=== PATIENT | female | born 1980 | race Caucasian/White ===

== ENCOUNTER 2020-02-09 13:28 | Emergency (ER) | payer BC, SELFPAY ==
[2020-02-09 13:37] VITALS: BP 131/64; PULSE 79; RESP 20; TEMP 37.2; O2SAT 98
--- NOTE | 2020-02-09 14:45 | ED.GENADULT ---
HPI - General Adult General Chief complaint: Skin/Abscess/Foreign Body Stated complaint: ABSCESS ON TAILBONE Time Seen by Provider: 02/09/20 13:47 Source: patient Mode of arrival: ambulatory Limitations: no limitations History of Present Illness HPI narrative: 39-year-old female patient presents to the emergency department with complaints of a wound to her tailbone area for the past 4 days. Denies any fevers, body aches or chills. Patient states that she has had abscess and wounds to this area before in the past but is been at least a year since she has had to have it drained. Patient states she has been taking ibuprofen as well as using hot showers to try and treat the wound. Patient denies any or breast-feeding at this time. Related Data Allergies Allergy/AdvReac Type Severity Reaction Status Date / Time No Known Allergies Allergy Mild Verified 02/09/20 13:43 Review of Systems Review of Systems: Narrative: CONSTITUTIONAL: Denies fever, chills, or sweats. EYES: Denies visual changes, redness, or discharge. ENT: Denies rhinorrhea, congestion, sore throat, or otalgia. CARDIOVASCULAR: Denies chest pain, palpitations, or edema. RESPIRATORY: Denies cough or dyspnea. GASTROINTESTINAL: Denies abdominal pain, nausea, vomiting, or diarrhea. GENITOURINARY: Denies dysuria or hematuria. SKIN: Denies rash or itching. Positive wound to tailbone x4 days MUSCULOSKELETAL: Denies back pain, joint pain, or myalgia. NEUROLOGIC: Denies headache, numbness, or weakness. PSYCHIATRIC: Denies anxiety or depression. PMFSH Social History Social History Smoking status: Never smoker Gender identity (if verbalized by the patient): Male Comments At the time of my signature I agree with nursing past medical history, surgical, social, and family history. There is no relevant family history pertinent to the presenting complaint. Exam Narrative: Exam Narrative: GENERAL: Well-appearing, well-nourished, and in no acute distress. HEAD: Normocephalic, atraumatic. EYES: PERRLA and EOMI. ENT: Nares clear, no rhinorrhea or epistaxis. Mucous membranes moist. NECK: Supple. No lymphadenopathy CHEST: Clear to auscultation. No respiratory distress. HEART: Regular rate and rhythm. No murmur heard. Normal peripheral pulses. ABDOMEN: Soft, nontender, nondistended, normal active bowel sounds. EXTREMITIES: Normal range of motion. No edema. SKIN: Warm, dry, no rash. Patient has an abscess noted to the right upper buttock/tailbone area. There is surrounding erythema, hardness to the skin as well as a center area that is raised and appears to be a blister. The reddened hardened area measures approximately 8 to 9 cm in length. NEURO: No focal deficits. Alert and oriented x3. Course Vital Signs Vital signs: Vital Signs Temperature 37.2 C 02/09/20 13:37 Pulse Rate 79 02/09/20 13:37 Respiratory Rate 20 02/09/20 13:37 Blood Pressure 131/64 02/09/20 13:37 Pulse Oximetry 98 02/09/20 13:37 Temperature 37.2 C 02/09/20 13:37 Pulse Rate 79 02/09/20 13:37 Respiratory Rate 20 02/09/20 13:37 Blood Pressure 131/64 02/09/20 13:37 Pulse Oximetry 98 02/09/20 13:37 Vital signs reviewed. The patient has been informed that they may have pre-hypertension or Hypertension based on a BP reading in the department. I recommend that the patient call the primary care provider listed on their discharge instructions or a physician of their choice this week to arrange follow up for further evaluation of possible pre-hypertension or Hypertension Procedures Abscess I/D back: Date of Incision: 02/09/20 Time of Incision: 15:01 Side (if applicable): right Sedation/analgesia: none Local Anesthetic: lidocaine 1% Amount of anesthesia used (mL): 4 Technique: incised with #11 blade Irrigation: Yes Packing used?: iodoform I&D Results: Pu
[2020-02-09 16:33] VITALS: BP 112/80; PULSE 80; RESP 20; TEMP 36.7; O2SAT 99
== END 2020-02-09 16:34 | disposition home or self-care (01) ==
PROVIDERS: Emergency Provider Nurse Practitioner Family
DX: L02.31 Cutaneous abscess of buttock (principal); R03.0 Elevated blood-pressure reading, without diagnosis of hypertension
CPT/HCPCS: 10061; 87070; 87147; 87205; 99283

== ENCOUNTER 2020-11-23 10:09 | Emergency (ER) | payer BC, SELFPAY ==
[2020-11-23 10:25] VITALS: BP 133/64; PULSE 90; RESP 16; TEMP 37.2; O2SAT 99
--- NOTE | 2020-11-23 10:31 | ED.SKABFB ---
HPI - Skin/Abscess/Foreign Bdy General Chief complaint: Skin/Abscess/Foreign Body Stated complaint: cyst on tailbone Time Seen by Provider: 11/23/20 10:24 Source: patient and RN notes reviewed Mode of arrival: ambulatory Limitations: no limitations History of Present Illness HPI narrative: 40-year-old female presents concern for a boil near her tail bone. Reports history of these cysts on her tailbone that she had to have lanced. Reports she noticed this area approximately 2 days ago. Reports she has been taking warm showers, ibuprofen. Denies any drainage, body aches, fatigue, general malaise. complaint: abscess/boil Related Data Allergies Allergy/AdvReac Type Severity Reaction Status Date / Time No Known Allergies Allergy Mild Verified 11/23/20 10:22 Review of Systems Review of Systems: Narrative: CONSTITUTIONAL: Denies malaise, chills, sweats, or fever. CARDIOVASCULAR: Denies chest pain, palpitations, or edema. RESPIRATORY: Denies cough or dyspnea. GASTROINTESTINAL: Denies abdominal pain, nausea, vomiting, diarrhea SKIN: Reports a boil near her tailbone MUSCULOSKELETAL: Denies back pain or myalgia. All systems reviewed & are unremarkable except as noted in HPI and below PMFSH Social History Social History Smoking status: Never smoker Gender identity (if verbalized by the patient): Male Comments At time of signature, agree with nursing past medical, surgical, social and family history. There is no relevant family history pertinent to the presenting complaint Exam Narrative: Exam Narrative: GENERAL: Well-appearing, well-nourished, and in no acute distress. HEAD: Normocephalic, atraumatic. EYES: PERRLA, conjunctivae clear ENT: Nares clear. Mucous membranes moist. NECK: Supple. CHEST: No respiratory distress. Speaks in full sentences. HEART: Regular rate and rhythm. SKIN: Warm, dry, no rash. [id number] area of induration, erythema warmth, with less than half centimeter area of minimal fluctuation. Surrounded by an additional 4 cm of erythema without induration. NEURO: Alert and oriented x3. PSYCH: Normal mood and affect Course Course Emergency Course: Discussed with patient pros and cons of attempting drainage of the abscess due to very small amount of fluctuation. Through shared decision-making, patient decided to use antibiotics and warm compresses without drainage at this time. She understands what to look for and reasons to return if the abscess needs drain. Patient is aware of diagnosis, understands and agrees to treatment plan. Anticipatory guidance given. Patient agrees to follow-up as directed and is aware of reasons to seek care at the emergency department. Portions of this record may have been created with voice recognition software Vital Signs Vital signs: Vital Signs Temperature 98.9 F 11/23/20 10:25 Pulse Rate 90 11/23/20 10:25 Respiratory Rate 16 11/23/20 10:25 Blood Pressure 133/64 11/23/20 10:25 Pulse Oximetry 99 11/23/20 10:25 Temperature 98.9 F 11/23/20 10:25 Pulse Rate 90 11/23/20 10:25 Respiratory Rate 16 11/23/20 10:25 Blood Pressure 133/64 11/23/20 10:25 Pulse Oximetry 99 11/23/20 10:25 Reviewed. MDM - Skin/Abscess/Foreign Bdy MDM Narrative Medical decision making narrative: Exam findings show no acute concerns or changes; patient is non-toxic appearing and is in no distress. Patient is appropriate for outpatient treatment and follow-up. Differential Diagnosis Differential diagnosis: Likely abscess of skin or subcutaneous tissue and cellulitis Critical Care Time Critical Care Time Critical Care Time: No Discharge Plan Discharge Clinical Impression: Abscess of skin or subcutaneous tissue Qualifiers: Site of cutaneous abscess: unspecified site Qualified Code(s): L02.91 - Cutaneous abscess, unspecified Patient Disposition: Home, Self-Care Condition: Stable Instructions: Anti
== END 2020-11-23 10:37 | disposition home or self-care (01) ==
PROVIDERS: Emergency Provider Nurse Practitioner
DX: L02.91 Cutaneous abscess, unspecified (principal)
CPT/HCPCS: 99213; G0463

== ENCOUNTER 2020-11-24 17:27 | Emergency (ER) | payer BC, SELFPAY ==
[2020-11-24 17:31] VITALS: BP 134/62; PULSE 99; RESP 18; TEMP 36.4; O2SAT 99
--- NOTE | 2020-11-24 18:11 | ED.GENADULT ---
HPI - General Adult General Chief complaint: Skin/Abscess/Foreign Body Stated complaint: abscess on tailbone Time Seen by Provider: 11/24/20 17:44 History of Present Illness HPI narrative: Patient is a 40-year-old female otherwise healthy who comes to the ED today complaining of an abscess on her tailbone. She says that this started 3 days ago has gotten progressively more edematous and painful since then. There is no drainage from this area. She denies any fevers or any systemic symptoms. Admits to previous history of similar symptoms before, she says that she has had this exact same thing happened on this exact same part of her body 6 times now in the past 3 years. Always requiring incision and drainage. She went to an urgent care yesterday and was prescribed some Augmentin but no incision and drainage was done. Denies any possibility of . Related Data Allergies Allergy/AdvReac Type Severity Reaction Status Date / Time No Known Allergies Allergy Mild Verified 11/24/20 17:35 Review of Systems Constitutional: Constitutional: Reports as per HPI, Denies fever(s), Denies night sweats and Denies weakness Cardiovascular: Cardiovascular: Denies chest pain, Denies edema, Denies leg edema, Denies dyspnea and Denies orthopnea Respiratory: Respiratory: Denies cough and Denies dyspnea Gastrointestinal: Gastrointestinal: Denies abdominal pain, Denies constipation, Denies diarrhea, Denies nausea and Denies vomiting Musculoskeletal: Musculoskeletal: Denies abnormal gait, Denies back pain, Denies numbness and Denies tingling Integumentary/Breasts: Comments: See HPI Neurologic: Denies Abnormal speech present, Denies abnormal gait, Denies numbness, Denies tingling and Denies weakness Psychiatric: Psychiatric: Denies homicidal ideation and Denies suicidal ideation ON LICENSE OF [facility] Social History Social History Smoking status: Never smoker Gender identity (if verbalized by the patient): Male Exam Const: General: cooperative, healthy appearing, comfortable, no acute distress, well developed, alert, awake and Physically active Orientation/consciousness: patient oriented x3 HENMT: Head: normal to inspection, normocephalic and atraumatic Ears: external ears normal General nose exam: Normal external nose present Eyes: Pupils: Equal, round and reactive pupils present EOM: EOMs intact bilaterally Neck: Neck: normal visual inspection Chest: Chest palpation & inspection: normal inspection of the chest and no tenderness Resp: Effort & Inspection: normal respiratory effort and able to speak in complete sentences Auscultation: clear to auscultation bilaterally Cardio: Rate: regular rate Rhythm: regular rhythm GI: Inspection: normal to inspection GI Palp: No abdominal tenderness : General: Yes no CVA tenderness Back/Spine/Pelvis: Back: no CVA tenderness Skin: General skin exam: normal color and no rashes or lesions noted Lesions: no lesions Other: At the superior right aspect of gluteal cleft there is a 3 cm in diameter indurated fluctuant area with some minimal surrounding erythema that is tender to palpate. Neuro: General: patient oriented x3, no focal motor deficits and CN's II-XI intact bilaterally Cranial nerves: Yes Equal, round and reactive pupils present Speech: No Abnormal speech present Extrem: General: normal to inspection and full ROM Psych: Appearance: grossly normal and well kempt Mental Status: mental status grossly normal Speech and movement: Normal speech and movement present Affect: normal affect Thought process: Normal thought process present Course Reevaluation(s) Reevaluation #1: Feeling better after incision and drainage. Patient tolerated procedure well. Told the packing should be removed in 2 to 3 days, preferably by healthcare professional. She can continue the Augmentin that she was prescribed yesterday as there is some surrounding erythema.
--- NOTE | 2020-11-24 18:24 | PC.NURSE ---
I&D kit set up at bedside.
--- NOTE | 2020-11-24 18:56 | PC.NURSE ---
PA at bedside for I&D.
[2020-11-24 19:34] VITALS: BP 131/84; PULSE 84; RESP 16; TEMP 36.4; O2SAT 99
== END 2020-11-24 19:35 | disposition home or self-care (01) ==
PROVIDERS: Emergency Provider Emergency Medicine
DX: L02.31 Cutaneous abscess of buttock (principal)
CPT/HCPCS: 10061; 99282

== ENCOUNTER 2020-12-26 17:30 | Emergency (ER) | payer BC, SELFPAY ==
--- NOTE | ~2020-12-26 | XR_ITS ---
EXAMINATION: XR wrist RT min 3V DATE: 12/26/2020 17:47 INDICATION: Right wrist pain. TECHNIQUE: Four views of right wrist were obtained. COMPARISON: None. FINDINGS: Bone alignment is normal. No fracture. Joint spaces are well maintained. IMPRESSION: 1. Normal right wrist. Reviewed, dictated and finalized at location A. IMPRESSION: 1. Normal right wrist.
[2020-12-26 17:31] VITALS: BP 134/55; PULSE 84; RESP 14; TEMP 36.3; O2SAT 99
--- NOTE | 2020-12-26 17:54 | ED.UPPEXIN ---
HPI - Extremity Injury (Upper) General Chief Complaint: Extremity Injury, Upper Stated Complaint: Wrist Injury Time Seen by Provider: 12/26/20 17:44 Source: patient Mode of arrival: ambulatory Limitations: no limitations History of Present Illness HPI narrative: This is a 40-year-old female that presents to the emergency department for right wrist injury sustained just prior to arrival. Reports she tripped and caught herself with her right wrist. Reports pain is worse with movement and relieved with rest. Denies other injuries, decreased range of motion or numbness. Related Data Allergies Allergy/AdvReac Type Severity Reaction Status Date / Time No Known Allergies Allergy Mild Verified 11/24/20 17:35 Review of Systems Review of Systems: Narrative: CONSTITUTIONAL: Denies fever MUSCULOSKELETAL: Reports joint pain, and myalgia. NEUROLOGIC: Denies numbness All systems reviewed & are unremarkable except as noted in HPI and below PMFSH Past Medical History Medical History (Updated 12/26/20 @ 18:21 by Monica Dunlap PA-C) No active medical problems Social History Social History Smoking status: Never smoker Gender identity (if verbalized by the patient): Male Exam Narrative: Exam Narrative: GENERAL: Well-appearing, well-nourished, and in no acute distress. HEAD: Normocephalic, atraumatic. EYES: EOMI. EXTREMITIES: Normal range of motion. No edema or obvious deformity. Normal radial pulses. Normal sensation SKIN: Warm, dry, no rash. NEURO: No focal deficits. Alert and oriented x3. PSYCH: Normal mood and affect Course Vital Signs Vital signs: Vital Signs Temperature 97.4 F L 12/26/20 17:31 Pulse Rate 84 12/26/20 17:31 Respiratory Rate 14 12/26/20 17:31 Blood Pressure 134/55 L 12/26/20 17:31 Pulse Oximetry 99 12/26/20 17:31 Temperature 97.4 F L 12/26/20 17:31 Pulse Rate 84 12/26/20 17:31 Respiratory Rate 14 12/26/20 17:31 Blood Pressure 134/55 L 12/26/20 17:31 Pulse Oximetry 99 12/26/20 17:31 MDM - Extremity Injury (Upper) Imaging Data Radiologist's impression: ITS Impressions Wrist X-Ray 12/26/20 17:48 IMPRESSION: 1. Normal right wrist. Critical Care Time Critical Care Time Critical Care Time: No Discharge Plan Discharge Clinical Impression: Sprain and strain of wrist Patient Disposition: Home, Self-Care Condition: Stable Instructions: Wrist Sprain (ED) Additional Instructions: Return to the emergency department if you experience fever, redness and swelling of your arm, numbness, or any other symptoms that are concerning to you Rest. Ice to the area. Tylenol or ibuprofen as needed for pain Follow-up with primary care doctor Prescriptions: No Action amoxicillin-pot clavulanate [Augmentin] 875-125 mg tablet 1 tablet PO Q12H 10 Days Qty: 20 RF: 0 Follow-up/Referrals: Florencio Hayden MD [Physician] - 3 Days PHYSICIAN,[employer] [Primary Care Provider] -
== END 2020-12-26 18:25 | disposition home or self-care (01) ==
PROVIDERS: Emergency Provider Emergency Medicine
DX: S63.501A Unspecified sprain of right wrist, initial encounter (principal); S66.911A Strain of unspecified muscle, fascia and tendon at wrist and hand level, right hand, initial encounter; W01.0XXA Fall on same level from slipping, tripping and stumbling without subsequent striking against object, initial encounter
CPT/HCPCS: 73110; 99283

== ENCOUNTER 2020-12-31 11:05 | Emergency (ER) | payer BC, SELFPAY ==
[2020-12-31 11:26] VITALS: BP 121/77; PULSE 70; RESP 20; TEMP 36.6; O2SAT 99
--- NOTE | 2020-12-31 13:36 | ED.DENTAL ---
HPI - Dental/Oral General Chief complaint: Dental/Oral Stated complaint: broken tooth Time Seen by Provider: 12/31/20 11:09 Source: patient Mode of arrival: ambulatory Limitations: no limitations History of Present Illness HPI Narrative: Patient is a 40 year old female who presents complaining of right lower dental pain. She reports broken tooth that keeps breaking . She reports pain started last pm and increasing today. She reports taking ibuprofen without relief. She reports unable to get into dentist until next week. She denies other complaints. MD Complaint: tooth pain Location: Tooth # (27) Related Data Allergies Allergy/AdvReac Type Severity Reaction Status Date / Time No Known Allergies Allergy Mild Verified 11/24/20 17:35 Review of Systems Review of Systems: Narrative: CONSTITUTIONAL: Denies fever, chills, or sweats. EYES: Denies visual changes, redness, or discharge. ENT: Denies rhinorrhea, congestion, sore throat, or otalgia. Right lower dental pain CARDIOVASCULAR: Denies chest pain, palpitations, or edema. RESPIRATORY: Denies cough or dyspnea. GASTROINTESTINAL: Denies abdominal pain, nausea, vomiting, or diarrhea. GENITOURINARY: Denies dysuria or hematuria. SKIN: Denies rash or itching. MUSCULOSKELETAL: Denies back pain, joint pain, or myalgia. NEUROLOGIC: Denies headache, numbness, dizziness, or weakness. PSYCHIATRIC: Denies anxiety or depression. PMFSH Past Medical History Medical History No active medical problems Social History Social History (Updated 12/31/20 @ 13:39 by LOY Augustin) Smoking status: Current every day smoker Tobacco type: cigarettes Alcohol intake: current Alcohol use details: occasional Substance use: never Gender identity (if verbalized by the patient): Female Comments At the time of signature, I have reviewed and agree with nursing past medical, surgical, social, and family history unless otherwise noted. Please see nursing chart for further information. There is no relevant family history pertinent to the presenting complaint. Exam Narrative: Exam Narrative: GENERAL: Well-appearing, well-nourished, and in no acute distress. HEAD: Normocephalic, atraumatic. EYES: EOMI. No redness or drainage. Conjunctiva are normal. ENT: Mucous membranes pink and moist. Multiple dental caries and dental fractures CHEST: No respiratory distress. Clear to auscultation. HEART: Regular rate and rhythm. EXTREMITIES: Normal range of motion. No edema. SKIN: Warm, dry, no rash. NEURO: No focal deficits. Alert and oriented x3. Gait steady. PSYCH: Normal affect. No signs of depression or anxiety. Course Vital Signs Vital signs: Vital Signs Temperature 36.6 C 12/31/20 11:26 Pulse Rate 70 12/31/20 11:26 Respiratory Rate 20 12/31/20 11:26 Blood Pressure 121/77 12/31/20 11:26 Pulse Oximetry 99 12/31/20 11:26 Temperature 36.6 C 12/31/20 11:26 Pulse Rate 70 12/31/20 11:26 Respiratory Rate 20 12/31/20 11:26 Blood Pressure 121/77 12/31/20 11:26 Pulse Oximetry 99 12/31/20 11:26 Reviewed MDM - Dental/Oral MDM Narrative Medical decision making narrative: Patient's been treated with antibiotics will most likely medical abscess/infection. Patient to follow-up with dentist next week as planned. Stable for discharge home with outpatient follow-up as discussed. Differential Diagnosis Differential diagnosis: Likely dental caries, toothache, dental abscess and fracture of tooth Medical Records Attestation: I reviewed the patient's medical records. Discharge Plan Discharge Clinical Impression: Dental caries, Dental abscess, Toothache Patient Disposition: Home, Self-Care Condition: Stable Instructions: Antibiotic Form, Dental Abscess (ED), Toothache (ED) Prescriptions: New clindamycin HCl 300 mg capsule 300 mg PO Q8H 7 Days Qty: 21 RF: 0 ibuprofen 800 mg tablet 8
== END 2020-12-31 13:53 | disposition home or self-care (01) ==
PROVIDERS: Emergency Provider Nurse Practitioner
DX: K04.7 Periapical abscess without sinus (principal); K02.9 Dental caries, unspecified; F17.210 Nicotine dependence, cigarettes, uncomplicated
CPT/HCPCS: 99283

== ENCOUNTER 2022-01-14 18:49 | Emergency (ER) | payer BC, SELFPAY ==
[2022-01-14 18:56] VITALS: BP 121/54; PULSE 94; RESP 21; TEMP 38.1; O2SAT 100
--- NOTE | 2022-01-14 19:01 | ED.FEMALEGU ---
HPI - Female Genitourinary General Chief complaint: Urogenital-Female Stated complaint: UTI Time Seen by Provider: 01/14/22 19:02 Source: patient and RN notes reviewed Mode of arrival: ambulatory Limitations: no limitations History of Present Illness HPI Narrative: 41-year-old female presented for complaint of burning with urination, suprapubic pressure, frequency and hesitancy for about 3 days. She denies flank pain, hematuria, nausea, vomiting, abdominal pain, fevers or chills. She states she is on her menstrual cycle. Related Data Allergies Allergy/AdvReac Type Severity Reaction Status Date / Time No Known Allergies Allergy Mild Verified 01/14/22 19:14 Review of Systems Review of Systems: CONSTITUTIONAL: Denies body aches, fever, chills, or sweats. CARDIOVASCULAR: Denies chest pain, palpitations, or edema. RESPIRATORY: Denies cough or dyspnea. GASTROINTESTINAL: Denies abdominal pain, nausea, vomiting, or diarrhea. GENITOURINARY: Reports dysuria, frequency, urgency, denies hematuria, flank pain SKIN: Denies rash, itching, or wounds. MUSCULOSKELETAL: Denies back pain or myalgia. [facility] Past Medical History Medical History No active medical problems Social History Social History Smoking status: Current every day smoker Tobacco type: cigarettes Alcohol intake: current Alcohol use details: occasional Substance use: never Gender identity (if verbalized by the patient): Female Comments At time of signature, I have reviewed and agree with nursing past medical, surgical, social and family history unless otherwise noted. Please see nursing chart for further information. There is no relevant family history pertinent to the presenting complaint Exam Narrative: GENERAL: Well-appearing ENT: Mucous membranes pink and moist. NECK: Normal AROM. Supple. CHEST: No respiratory distress. Clear to auscultation. HEART: Regular rate and rhythm. ABDOMEN: Soft, nontender, nondistended, normal active bowel sounds. No CVA tenderness MUSCULOSKELETAL: No bony tenderness. SKIN: Warm, dry, no rash. NEURO: No focal deficits. Alert and oriented x3. PSYCH: Normal affect. Course Course Emergency Course: Patient is aware of diagnosis, understands and agrees to treatment plan. Anticipatory guidance given. Patient agrees to follow-up as directed and is aware of reasons to seek care at the emergency department. Portions of this record may have been created with voice recognition software Level of Care: Express Care Visit Vital Signs Vital signs: Vital Signs Temperature 100.5 F H 01/14/22 18:56 Pulse Rate 94 01/14/22 18:56 Respiratory Rate 21 H 01/14/22 18:56 Blood Pressure 121/54 L 01/14/22 18:56 Pulse Oximetry 100 01/14/22 18:56 Oxygen Delivery Room Air 01/14/22 18:56 Temperature 100.5 F H 01/14/22 18:56 Pulse Rate 94 01/14/22 18:56 Respiratory Rate 21 H 01/14/22 18:56 Blood Pressure 121/54 L 01/14/22 18:56 Pulse Oximetry 100 01/14/22 18:56 Oxygen Delivery Room Air 01/14/22 18:56 Reviewed MDM - Female Genitourinary MDM Narrative Medical decision making narrative: Presented for UTI symptoms, on menses, ua reviewed with pt. She is advised to increase water, closely monitor symptoms and go to the ER for worsening concerns. v/u. Differential Diagnosis Differential diagnosis: Likely urinary tract infection and cystitis Discharge Plan Discharge Clinical Impression: UTI (urinary tract infection) Qualifiers: Urinary tract infection type: site unspecified Hematuria presence: with hematuria Qualified Code(s): N39.0 - Urinary tract infection, site not specified Patient Disposition: Home, Self-Care Condition: Stable Instructions: Antibiotic Form Additional Instructions: Your urine shows infection today. Take the antibiotic as prescribed until gone.
== END 2022-01-14 19:23 | disposition home or self-care (01) ==
PROVIDERS: Emergency Provider Nurse Practitioner Family
DX: N39.0 Urinary tract infection, site not specified (principal); F17.210 Nicotine dependence, cigarettes, uncomplicated
CPT/HCPCS: 81003; 87077; 87086; 87186; 99213; G0463

== ENCOUNTER 2022-09-13 13:06 | Emergency (ER) | payer BC, SELFPAY ==
[2022-09-13 13:10] VITALS: BP 147/80; PULSE 76; RESP 16; TEMP 37.1; O2SAT 100
--- NOTE | 2022-09-13 13:21 | ED.BACK ---
HPI - Back Pain/Injury General Chief Complaint: Back Pain/Injury Stated Complaint: lower back pain Time Seen by Provider: 09/13/22 13:09 History of Present Illness HPI Narrative: 22-year-old female presents emergency room for gradual onset of lower back pain for 1 week. Patient states that she works at [employer], has been lifting heavy objects while at work. Has been taking Tylenol and ibuprofen with minimal relief of her symptoms. States couple days ago her low back pain began to radiate into her left leg. Denies saddle anesthesia, paresthesias or numbness in her lower extremities. No changes to her bowel or bladder habits. Related Data Allergies Allergy/AdvReac Type Severity Reaction Status Date / Time No Known Allergies Allergy Mild Verified 01/14/22 19:14 Review of Systems Review of Systems: CONSTITUTIONAL: Denies fever, chills, or sweats. EYES: Denies visual changes, redness, or discharge. ENT: Denies rhinorrhea, congestion, sore throat, or otalgia. CARDIOVASCULAR: Denies chest pain, palpitations, or edema. RESPIRATORY: Denies cough or dyspnea. GASTROINTESTINAL: Denies abdominal pain, nausea, vomiting, or diarrhea. GENITOURINARY: Denies dysuria or hematuria. SKIN: Denies rash or itching. MUSCULOSKELETAL: Reports low back pain NEUROLOGIC: Denies headache, numbness, dizziness, or weakness. PSYCHIATRIC: Denies anxiety or depression. PMFSH Past Medical History Medical History No active medical problems Social History Social History Smoking status: Current every day smoker Tobacco type: cigarettes Alcohol intake: current Alcohol use details: occasional Substance use: never Gender identity (if verbalized by the patient): Female Exam Narrative: GENERAL: Well-appearing, well-nourished, no physical limitations, and in no acute distress. HEAD: Normocephalic, atraumatic. EYES: Conjunctivae normal, PERRLA and EOMI. CHEST: Clear to auscultation. No respiratory distress. No wheezes rales or rhonchi. HEART: Regular rate and rhythm. No murmur heard. Normal peripheral pulses. BACK: No midline lumbar tenderness, step-offs, bony abnormality; FROM. Tenderness over the left paralumbar spinal muscles. -SLE LLE EXTREMITIES: Normal range of motion. No edema. No clubbing or cyanosis SKIN: Warm, dry, no rash. No noted wounds NEURO: No focal deficits. Alert and oriented x3. MAEW. CN's II-XI intact bilaterally, normal gait PSYCH: Cooperative. Normal mood and affect. Course Vital Signs Vital signs: Vital Signs Temperature 37.1 C 09/13/22 13:10 Pulse Rate 76 09/13/22 13:10 Respiratory Rate 16 09/13/22 13:10 Blood Pressure 147/80 H 09/13/22 13:10 Pulse Oximetry 100 09/13/22 13:10 Oxygen Delivery Room Air 09/13/22 13:10 Temperature 37.1 C 09/13/22 13:10 Pulse Rate 76 09/13/22 13:10 Respiratory Rate 16 09/13/22 13:10 Blood Pressure 147/80 H 09/13/22 13:10 Pulse Oximetry 100 09/13/22 13:10 Oxygen Delivery Room Air 09/13/22 13:10 Discharge Plan Discharge Clinical Impression: Lumbago Patient Disposition: Home, Self-Care Condition: Stable Instructions: Antibiotic Form, Acute Low Back Pain (ED) Prescriptions: New methocarbamol 500 mg tablet 500 mg PO TID Qty: 21 0RF No Action ciprofloxacin HCl [Cipro] 500 mg tablet 500 mg PO Q12H 7 Days Qty: 14 0RF phenazopyridine [Pyridium] 200 mg tablet 200 mg PO TID 2 Days Qty: 6 0RF amoxicillin-pot clavulanate 875-125 mg tablet 1 tablet PO Q12H Qty: 14 0RF Follow-up/Referrals: PHYSICIAN,HIGH RIGGER [Primary Care Provider] - Stand Alone Forms: Work/School Release IP Time of Disposition: 13:24
== END 2022-09-13 13:37 | disposition home or self-care (01) ==
PROVIDERS: Emergency Provider Nurse Practitioner Family
DX: M54.50 Low back pain, unspecified (principal); F17.210 Nicotine dependence, cigarettes, uncomplicated
CPT/HCPCS: 96372; 99283; J1100

== ENCOUNTER 2022-12-14 17:19 | Emergency (ER) | payer BC, SELFPAY ==
[2022-12-14 17:35] VITALS: BP 130/59; PULSE 74; RESP 16; TEMP 37.3; O2SAT 99
--- NOTE | 2022-12-14 17:56 | ED.FEMALEGU ---
HPI - Female Genitourinary General Chief complaint: Urogenital-Female Stated complaint: abd pain/uti Time Seen by Provider: 12/14/22 17:55 Source: patient and RN notes reviewed Mode of arrival: ambulatory Limitations: no limitations History of Present Illness HPI Narrative: 42-year-old female presents with concern for lower abdominal discomfort, low back pain, urinary tract infection. She reports abdominal pressure and fullness after she urinates. Reports she feels like she needs to urinate after she has just urinated. She reports history of urinary tract infections. She denies fever, aches, chills, sweats, nausea, vomiting. She has not taken any medications for her symptoms MD elicited complaint: UTI Related Data Allergies Allergy/AdvReac Type Severity Reaction Status Date / Time No Known Allergies Allergy Mild Verified 12/14/22 17:37 Review of Systems Review of Systems: CONSTITUTIONAL: Denies malaise, chills, sweats, or fever. CARDIOVASCULAR: Denies chest pain, palpitations, or edema. RESPIRATORY: Denies cough or dyspnea. GASTROINTESTINAL: Denies abdominal pain, nausea, vomiting, diarrhea GENITOURINARY: Reports urgency, suprapubic pressure. Denies flank pain or hematuria. SKIN: Denies rash or itching. MUSCULOSKELETAL: Denies back pain or myalgia. All systems reviewed & are unremarkable except as noted in HPI and below PMFSH Past Medical History Medical History No active medical problems Social History Social History Smoking status: Current every day smoker Tobacco type: cigarettes Alcohol intake: current Alcohol use details: occasional Substance use: never Gender identity (if verbalized by the patient): Female Comments At time of signature, agree with nursing past medical, surgical, social and family history. There is no relevant family history pertinent to the presenting complaint Exam Narrative: GENERAL: Well-appearing, well-nourished, and in no acute distress. HEAD: Normocephalic. EYES: PERRLA, conjunctivae clear. NECK: Supple. No lymphadenopathy CHEST: Clear to auscultation. No respiratory distress. HEART: Regular rate and rhythm. ABDOMEN: Soft, nontender upon palpation, nondistended, normal active bowel sounds, no palpable or pulsatile masses, no guarding. No CVA tenderness SKIN: Warm, dry, no rash. NEURO: Alert and oriented x3. PSYCH: Normal mood and affect Course Course Emergency Course: Patient is aware of diagnosis, understands and agrees to treatment plan. Anticipatory guidance given. Patient agrees to follow-up as directed and is aware of reasons to seek care at the emergency department. Portions of this record may have been created with voice recognition software Level of Care: Express Care Visit Vital Signs Vital signs: Vital Signs Temperature 99.1 F 12/14/22 17:35 Pulse Rate 74 12/14/22 17:35 Respiratory Rate 16 12/14/22 17:35 Blood Pressure 130/59 L 12/14/22 17:35 Pulse Oximetry 99 12/14/22 17:35 Oxygen Delivery Room Air 12/14/22 17:35 Temperature 99.1 F 12/14/22 17:35 Pulse Rate 74 12/14/22 17:35 Respiratory Rate 16 12/14/22 17:35 Blood Pressure 130/59 L 12/14/22 17:35 Pulse Oximetry 99 12/14/22 17:35 Oxygen Delivery Room Air 12/14/22 17:35 Reviewed. MDM - Female Genitourinary MDM Narrative Medical decision making narrative: Exam findings and UA show no acute concerns or changes; patient is non-toxic appearing and is in no distress. Patient is appropriate for outpatient treatment and follow-up. Differential Diagnosis Differential diagnosis: Likely urinary tract infection and cystitis Lab Data Labs: Urine Glucose Negative Reference Range: Negative Urine Bilirubin Negative
== END 2022-12-14 18:08 | disposition home or self-care (01) ==
PROVIDERS: Emergency Provider Nurse Practitioner
DX: R39.15 Urgency of urination (principal); R10.30 Lower abdominal pain, unspecified; F17.210 Nicotine dependence, cigarettes, uncomplicated
CPT/HCPCS: 81003; 87086; 99213; G0463

== ENCOUNTER 2023-03-28 01:44 | Emergency (ER) | payer BC, SELFPAY ==
[2023-03-28] VITALS (20 sets, daily range): BP systolic 100–133; BP diastolic 53–66; PULSE 53–85; RESP 11–18; TEMP 36.7; O2SAT 90–98
--- NOTE | ~2023-03-28 | CT_ITS ---
CT of the Abdomen and Pelvis: Indication: Abdominal pain Technique: 2.5 mm axial scans were obtained through the abdomen and pelvis following intravenous adm inistration of 100 cc of Omnipaque 350. Dose reduction technique was used on this scan by utilizing a utomated exposure control and iterative reconstruction technique. The dose-length product (DLP) was 7 35.40 mGy-cm. Findings: Scans through the lung bases demonstrate minimal bibasilar atelectatic change. The liver, spleen, pancreas, gallbladder, adrenals and kidneys are within normal limits. No evidence of aortic aneurysm. No lymphadenopathy. No bowel obstruction or bowel wall thickening. There is no evidence to suggest acute appendicitis. Images through the pelvis were performed. Urinary bladder unremarkable. There is a complex/multisepta noah cystic mass in the left ovary measuring up to 5.5 x 4.1 cm in diameter. No beto ascites. Impression: 5.5 x 4.1 cm complex/multiseptated left ovarian cystic mass. Diagnostic considerations include tubo-o varian abscess, cystic neoplasm, and other cystic ovarian lesions. Pelvic ultrasound should be consid ered for further evaluation. Reviewed, dictated and finalized at [facility]. Impression: 5.5 x 4.1 cm complex/multiseptated left ovarian cystic mass. Diagnostic conside rations include tubo-ovarian abscess, cystic neoplasm, and other cystic ovarian lesions. Pelvic ultrasound should be considered for further evaluation.
--- NOTE | ~2023-03-28 | US_ITS ---
EXAMINATION: US transvaginal DATE: 03/28/2023 08:06 INDICATION: Pelvic pain. TECHNIQUE: Multiple transvaginal sonographic images of the pelvis were obtained. COMPARISON: CT abdomen and pelvis 03/28/2023 FINDINGS: The uterus measures 8.2 x 5.6 x 4.0 cm. There is no free fluid in the pelvis. The endometrial complex measures 12 mm in thickness. The right ovary measures 2.8 x 1.8 x 1.9 cm. The left ovary measures 5. 8 x 1.8 x 2.7 cm. There is a 2.5 cm hemorrhagic cyst in left ovary. There is normal vascular flow in the ovaries. IMPRESSION: 1. 2.5 cm hemorrhagic cyst in left ovary. Reviewed, dictated and finalized at location A.
[2023-03-28 02:29] LABS: Basophils Absolute Auto 0.1 K/mm3 (0.0-0.1); Basophils Percent Auto 0.4 % (0.2-1.2); Eosinophils Percent Auto 0.2 % (0-4.4); Hematocrit 39.2 % (37.0-47.0); Hemoglobin 13.2 g/dL (12.0-15.0); Immature Granulocyte Absolute 0.08 K/mm3 (0.00-0.031); Immature Granulocyte Percent A 0.4 % (0-0.5); Lymphocytes Absolute Auto 2.11 K/mm3 (0.9-3.2); Lymphocytes Percent Auto 11.3 % (18.3-44.2); Mean Corpuscular HGB Conc 33.7 g/dl (32-36); Mean Corpuscular Hemoglobin 30.7 pg (26-34); Mean Corpuscular Volume 91.2 fl (80-100); Mean Platelet Volume 10.7 fl (7.4-10.4); Monocytes Absolute Auto 1.4 K/mm3 (0.1-0.6); Monocytes Percent Auto 7.4 % (2.6-8.5); Neutrophils Percent Auto 80.3 % (45.5-73.1); Platelet Count Result 285 k/mm3 (150-375); Red Cell Distribution Width 12.9 % (11.5-14.5); White Blood Count 18.7 K/mm3 (4.5-10.0)
[2023-03-28 02:39] LABS: Alanine Aminotransferase 12 U/L (6-35); Albumin Level 4.4 g/dL (3.5-5.1); Alkaline Phosphatase 95 U/L (38-126); Anion Gap 8 mmol/L (8-16); Aspartate Amino Transferase 20 U/L (14-36); Bilirubin,Total 0.6 mg/dL (0.2-1.3); Blood Urea Nitrogen 10 mg/dL (7-17); Carbon Dioxide 22 mmol/L (22-30); Chloride 106 mmol/L (98-107); Estimated CRCL calculation 84 ml/min; Estimated Glomerular Filt Rate > 60; Glucose 117 mg/dL (65-110); Lipase 92 U/L (23-300); Sodium 136 mmol/L (137-145)
[2023-03-28 03:07] LABS: Appearance Urine Clear (Clear); Bilirubin Urine Negative (Negative); Blood Urine Negative (Negative); Color Urine Yellow (Yellow); Glucose Urine UA Negative (Negative); Ketones Urine Negative (Negative); Leukocyte Esterase Ur Negative LEU/UL (Negative); Nitrate Urine Negative (Negative); Protein Urine Negative (Negative); Specific Grav Ur 1.005 (1.001-1.035); Urobilinogen Urine 0.2 mg/dL (<2.0)
[2023-03-28 03:17] LABS: Add Urine Microscopic? NO
[2023-03-28] MEDS: MORPHINE SULFATE (*CRX) 4 MG/ML INJ IV PUSH (04:06)
[2023-03-28] MEDS: ONDANSETRON INJ 4 MG/2 ML VIAL IV PUSH (04:06)
[2023-03-28] MEDS: LACTATED RINGERS 1,000 ML 999 ML IV CONT (05:48)
--- NOTE | 2023-03-28 06:12 | ED.ABDPAIN ---
HPI - Abdominal Pain General Chief Complaint: Abdominal Pain Stated Complaint: abd pain Time Seen by Provider: 03/28/23 01:51 History of Present Illness HPI narrative: 42-year-old female presenting with lower abdominal pain, she states that she has had problems with her ovary in the past, reports that the pain started earlier in the night with nausea due to the severity of the pain. No vaginal discharge. Related Data Allergies Allergy/AdvReac Type Severity Reaction Status Date / Time No Known Allergies Allergy Mild Verified 12/14/22 17:37 Review of Systems Review of Systems: CONST: No fever. HEENT: No sore throat C/V: No chest pain RESP: No cough GI: Reports abdominal pain, nausea : No dysuria. M/S: No joint pain. SKIN: No rash. NEURO: [No headache or focal numbness or weakness] PSYCH: [No depression] [facility] Past Medical History Medical History No active medical problems Social History Social History Smoking status: Current every day smoker Tobacco type: cigarettes Alcohol intake: current Alcohol use details: occasional Substance use: never Gender identity (if verbalized by the patient): Female Exam Narrative: EXAMINATION OF ORGAN SYSTEMS/BODY AREAS: Constitutional: Vital signs per nursing GENERAL: Appears slightly uncomfortable and HEAD: Normal with no signs of head trauma. EYES: EOMI, conjunctiva normal ENT: Hearing grossly intact LUNGS: Nonlabored breathing. HEART: [Regular rate and rhythm] ABD: [Soft], mildly tender to palpation left lower quadrant : Vaginal discharge with some tenderness to left adnexa EXT: Normal range of motion SKIN: [No rashes or lesions.] NEURO: [Alert and oriented x 3. No gross focal sensory or strength deficits.] PSYCH: Normal affect Course Vital Signs Vital signs: Vital Signs Temperature 98.1 F 03/28/23 01:45 Pulse Rate 85 03/28/23 01:45 Respiratory Rate 16 03/28/23 01:45 Blood Pressure 133/66 03/28/23 01:45 Pulse Oximetry 98 03/28/23 01:45 Oxygen Delivery Room Air 03/28/23 01:45 Temperature 98.1 F 03/28/23 01:45 Pulse Rate 54 L 03/28/23 07:01 Respiratory Rate 14 03/28/23 07:01 Blood Pressure 101/56 L 03/28/23 07:01 Pulse Oximetry 95 03/28/23 07:01 Oxygen Delivery Room Air 03/28/23 01:45 MDM - Abdominal Pain MDM Narrative Medical decision making narrative: 42-year-old female presenting with pelvic pain, on exam she does have some mild tenderness to palpation left lower quadrant/adnexal tenderness with vaginal discharge, she has never been tested for STDs in the past but she is monogamous with her partner for the last 5 years and has not had any intercourse with anyone else's during this time and she is does not feel there is any concern of her partner cheating on her. Labs notable for white count of 18.7, CT therefore obtained which shows a possible cyst versus hydrosalpinx or tubo-ovarian abscess. Ultrasound therefore is ordered. Discussed with patient who would prefer to have all STD antibiotics ordered so I have started this to treat possible tubo-ovarian abscess. Patient being signed out to oncoming ER physician pending ultrasound. Lab Data 03/28/23 02:24 03/28/23 02:24 Labs: Lab Results 03/28/23 03/28/23 03/28/23 Range/Units 02:24 03:01 06:44 WBC 18.7 H (4.5-10.0) K/mm3 RBC 4.30 (4.2-5.4) M/mm3 Hgb 13.2 (12.0-15.0) g/dL Hct 39.2 (37.0-47.0) % MCV 91.2 (80-100) fl MCH 30.7 (26-34) pg MCHC 33.7 (32-36) g/dl RDW 12.9 (11.5-14.5) % Plt Count 285 (150-375) k/mm3 MPV 10.7 H (7.4-10.4) fl Immature Gran % (Auto) 0.4 (0-0.5) % Neut % (Auto) 80.3 H (45.5-73.1) % Lymph % (Auto) 11.3 L (18.3-44.2) % [place] % (Auto) 7.4 (2.6-8.5) % Eos % (Auto) 0.2 (0-4.4) % Baso % (Auto) 0.4
[2023-03-28] MEDS: DOXYCYCLINE HYCLATE 100 MG TABLET PO (07:04)
[2023-03-28] MEDS: metroNIDAZOLE 250 MG TABLET 500 MG PO (07:04)
== END 2023-03-28 08:55 | disposition home or self-care (01) ==
PROVIDERS: Emergency Medicine; Emergency Provider Emergency Medicine
DX: N83.202 Unspecified ovarian cyst, left side (principal); Z20.2 Contact with and (suspected) exposure to infections with a predominantly sexual mode of transmission; F17.210 Nicotine dependence, cigarettes, uncomplicated
CPT/HCPCS: 36415; 74177; 76830; 80053; 81003; 81025; 83690; 85025; 87070; 87491; 87591; 87808; 96361; 96365; 96375; 99284; A9270; J0696; J2270; J2405; J7120; Q9967

== ENCOUNTER 2024-03-07 10:19 | Emergency (ER) | payer BC, SELFPAY ==
[2024-03-07 10:27] VITALS: BP 130/69; PULSE 61; RESP 16; TEMP 36.7; O2SAT 100
--- NOTE | 2024-03-07 10:33 | ED.GENADULT ---
HPI - General Adult General Chief complaint: Skin/Abscess/Foreign Body Stated complaint: Bump On Butt Source: patient Mode of arrival: ambulatory Limitations: no limitations History of Present Illness HPI narrative: Pt presents for evaluation of a painful area of swelling to her coccyx for the past few days. She has had similar symptoms in the past and has required I+D. No fever, chills, nausea, vomiting. She rates her pain at rest as 6/10 severity but rates a 10/10 in severity with palpation the affected area. No discharge. She is not diabetic. She has tolerated both tramadol and [place] in the past. Related Data Allergies Allergy/AdvReac Type Severity Reaction Status Date / Time No Known Allergies Allergy Mild Verified 03/07/24 10:32 Review of Systems Review of Systems: CONSTITUTIONAL: Denies fever, chills, or sweats. EYES: Denies visual changes, redness, or discharge. ENT: Denies rhinorrhea, congestion, sore throat, or otalgia. CARDIOVASCULAR: Denies chest pain, palpitations, or edema. RESPIRATORY: Denies cough or dyspnea. GASTROINTESTINAL: Denies abdominal pain, nausea, vomiting, or diarrhea. GENITOURINARY: Denies dysuria or hematuria. SKIN: Reports painful swollen lesion to the coccyx MUSCULOSKELETAL: Denies back pain, joint pain, or myalgia. NEUROLOGIC: Denies headache, numbness, dizziness, or weakness. PSYCHIATRIC: Denies anxiety or depression. PMFSH Past Medical History Medical History (Updated 03/07/24 @ 11:23 by CHELSIE LegerP, ) No active medical problems Surgical History Surgical History No pertinent past surgical history Family History Family History (Updated 03/07/24 @ 11:23 by LOY Leger, ) Mother Family history non-contributory Social History Social History Smoking status: Current every day smoker Tobacco type: cigarettes Alcohol intake: current Alcohol use details: occasional Substance use: never Gender identity (if verbalized by the patient): Female Exam Narrative: GENERAL: Well-appearing, well-nourished, and in no acute distress. HEAD: Normocephalic, atraumatic. EYES: PERRLA and EOMI. ENT: Nares clear, no rhinorrhea or epistaxis. Mucous membranes moist. Oropharynx without tonsillar hypertrophy exudate or other lesions. Bilateral TMs pearly delarosa nonbulging NECK: Supple. No adenopathy or masses. No carotid bruits or JVD CHEST: Clear to auscultation. No respiratory distress. No wheezes rales or rhonchi HEART: Regular rate and rhythm. No murmur heard. Normal peripheral pulses. ABDOMEN: Soft, nontender, nondistended, normal active bowel sounds. EXTREMITIES: Normal range of motion. No edema. SKIN: approximately 2.5 cm slightly raised lesion to the coccyx which is fluctuant and erythematous. there is a linear scar in the affected area NEURO: No focal deficits. Alert and oriented x3. PSYCH: Normal mood and affect. Course Course Emergency Course: This is a 43-year-old female who presented for evaluation of infected pilonidal cyst. I suspected she had an abscess in the area however with incision and drainage I did not appreciate a large amount of purulent discharge. Wound cultures obtained. Will discharge with Keflex, Bactrim and tramadol. Follow-up with primary provider. Go to the ER for worsening symptoms. Patient in agreement with plan of care Level of Care: Express Care Visit Vital Signs Vital signs: Vital Signs Temperature 36.7 C 03/07/24 10:27 Pulse Rate 61 03/07/24 10:27 Respiratory Rate 16 03/07/24 10:27 Blood Pressure 130/69 03/07/24 10:27 Pulse Oximetry 100 03/07/24 10:27 Oxygen Delivery Room Air 03/07/24 10:27 Temperature 36.7 C 03/07/24 10:27 Pulse Rate 61 03/07/24 10:27 Respiratory Rate 16 03/07/24 10:27 Blood Pressure 130/69 03/07/24 10:27 Pulse Oximetry 100
[2024-03-07] MEDS: LIDOCAINE HCL 1% LOCAL INJ 2 ML AMPUL 10 ML INFILTRATE (10:34)
--- NOTE | 2024-03-07 11:45 | ED.GENADULT ---
HPI - General Adult General Chief complaint: Skin/Abscess/Foreign Body Stated complaint: Bump On Butt Source: patient Mode of arrival: ambulatory Limitations: no limitations History of Present Illness HPI narrative: see other chart Related Data Allergies Allergy/AdvReac Type Severity Reaction Status Date / Time No Known Allergies Allergy Mild Verified 04/22/24 10:27 [facility] Past Medical History Medical History Hypertriglyceridemia No active medical problems Surgical History Surgical History History of excision of pilonidal cyst 04/04/24 Extensive pilonidal cystectomy with excision of sinus tract Family History Family History Mother Yovany's disease Grandparent Diabetes mellitus Social History Social History Smoking packs per day: 1 Smoking cigarettes per day: 20.0 Smoking status: Former smoker Tobacco type: cigarettes Alcohol intake: current Alcohol use details: occasional Substance use: former Substance use type: former substance user, IV drugs and methamphetamine Last use: 9 MONTHS AGO Do You Feel Safe in your Home?: Yes Lack of Transportation: No Lack of Food: Never True Current Housing: I Have Housing Concerned About Future Housing: No Difficulty Paying Gas/Electric Bills: No Difficulty Paying for Meds: No Education: Associate Degree Difficulty w/ Childcare or Family Care: No Living arrangements: with family Occupation/Education: occupation Gender identity (if verbalized by the patient): Female Spiritual care concerns: No Course Course Level of Care: Express Care Visit Vital Signs Vital signs: Vital Signs Temperature 36.7 C 03/07/24 10:27 Pulse Rate 61 03/07/24 10:27 Respiratory Rate 16 03/07/24 10:27 Blood Pressure 130/69 03/07/24 10:27 Pulse Oximetry 100 03/07/24 10:27 Oxygen Delivery Room Air 03/07/24 10:27 Temperature 36.7 C 03/07/24 10:27 Pulse Rate 61 03/07/24 10:27 Respiratory Rate 16 03/07/24 10:27 Blood Pressure 130/69 03/07/24 10:27 Pulse Oximetry 100 03/07/24 10:27 Oxygen Delivery Room Air 03/07/24 10:27 Medical Decision Making Vital Signs Vital Signs: Vital Signs Temperature 36.7 C 03/07/24 10:27 Pulse Rate 61 03/07/24 10:27 Respiratory Rate 16 03/07/24 10:27 Blood Pressure 130/69 03/07/24 10:27 Pulse Oximetry 100 03/07/24 10:27 Oxygen Delivery Room Air 03/07/24 10:27 Temperature 36.7 C 03/07/24 10:27 Pulse Rate 61 03/07/24 10:27 Respiratory Rate 16 03/07/24 10:27 Blood Pressure 130/69 03/07/24 10:27 Pulse Oximetry 100 03/07/24 10:27 Oxygen Delivery Room Air 03/07/24 10:27 Discharge Plan Discharge Clinical Impression: Infected pilonidal cyst Patient Disposition: Home, Self-Care Condition: Stable Instructions: Antibiotic Form, Pilonidal Cyst (ED), Cellulitis (ED) Patient Language: Yakut Prescriptions: No Action oxycodone 5 mg tablet 5 mg PO Q6H PRN (Reason: pain) Qty: 20 0RF fenofibrate 54 mg tablet 54 mg PO DAILY Qty: 90 1RF Follow-up/Referrals: Lyric Valero MD [Primary Care Provider] - Time of Disposition: 11:21
== END 2024-03-07 11:25 | disposition home or self-care (01) ==
PROVIDERS: Emergency Provider Nurse Practitioner; PCP Family Medicine
DX: L05.91 Pilonidal cyst without abscess (principal)
CPT/HCPCS: 10080; 87070; 87075; 87205; 99213; G0463

== ENCOUNTER 2024-03-20 10:16 | Outpatient (CLI) | payer BC, SELFPAY ==
--- NOTE | ~2024-03-20 | US_ITS ---
EXAMINATION: US soft tissue head and neck DATE: 03/20/2024 10:35 INDICATION: Localized swelling, mass and lump, neck. TECHNIQUE: Multiple grayscale and Doppler ultrasound images of the head and neck were obtained. COMPARISON: None. FINDINGS: The right thyroid lobe measures 6.7 x 1.9 x 2.0 cm. The left thyroid lobe measures 6.1 x 2.1 x 2.2 c m. In the left thyroid lobe, there is a 1.8 cm solid, hypoechoic, wider than tall nodule with lobula r margins without echogenic foci (TI-RADS TR4). In the right thyroid lobe, there is a 1.5 cm solid, h ypoechoic, wider than tall nodule with ill-defined margin without echogenic foci (TR4). In the right thyroid lobe, there is a 7 mm mixed cystic and solid, hypoechoic, wider than tall nodule with ill-def ined margin without echogenic foci (TR3). There is no abnormal mass or lymphadenopathy in the patient 's area of concern in right neck. IMPRESSION: 1. Multinodular goiter. Ultrasound-guided fine needle aspiration of the 1.8 cm left thyroid nodule an d 1.5 cm right thyroid nodule is recommended. 2. No abnormal mass or lymphadenopathy in the patient's area of concern in right neck. Reviewed, dictated and finalized at location A. IMPRESSION: 1. Multinodular goiter. Ultrasound-guided fine needle aspiration of the 1.8 cm left thyroid nodule and 1.5 cm right thyroid nodule is recommended. 2. No abnormal mass or lymphadenopathy in the patient's area of concern in righ t neck.
== END 2024-03-20 10:17 ==
LOC: MICIMG 10:17
PROVIDERS: PCP Family Medicine; Visit Provider Student in an Organized Health Care Education/Training Program
DX: R22.1 Localized swelling, mass and lump, neck (principal); E04.2 Nontoxic multinodular goiter
CPT/HCPCS: 76536

== ENCOUNTER 2024-04-01 13:37 | Outpatient (CLI) | payer BC, SELFPAY ==
--- NOTE | 2024-04-01 13:30 | ECG_ITS ---
Test Date: 2024-04-01 13:56:46 Measurements Intervals [place] Rate: 57 P: 48 GA: 155 QRS: 77 QRSD: 84 T: 24 QT: 394 QTc: 384 Interpretive Statements SINUS BRADYCARDIA No previous ECG available for comparison Electronically Signed On 04-01-2024 14:42:31 CDT by Clark Reilly M.D.
== END 2024-04-01 13:38 | disposition home or self-care (01) ==
LOC: ANHSURGERY 13:40
PROVIDERS: PCP Family Medicine; Visit Provider Surgery
DX: E78.1 Pure hyperglyceridemia (principal)
CPT/HCPCS: 93005

== ENCOUNTER 2024-04-04 00:14 | Day surgery (SDC) | payer BC, SELFPAY ==
--- NOTE | 2024-03-27 14:52 | SUR.PREOP ---
Report to the Outpatient Waiting Room, entrance under the green pavilion located off [facility], at time 0630 on date 04/04/24. Planned Procedure Time: 0830. Time changes happen often and if your time is changed the preop area will call you the afternoon before. - You and your visitor will be asked to self-screen and do not enter if you have any COVID symptoms. - A mask is optional within the hospital at this time. Patients may have clear liquids (water, carbonated beverages, clear teas, apple juice) until 3 hours prior to surgery with a maximum of 20 ounces. - NO CLEAR LIQUIDS AFTER 0530 - No food from midnight until time of surgery - Infants may have breast milk until 4 hours before surgery, formula 6 hours prior to surgery. - Children will be allowed to drink immediately following surgery. If applicable, please bring a bottle or sippy cup to assist with drinking. Juice, water, soda, and popsicles are readily available. For infants on formula, please bring formula the day of surgery. Pacifiers are allowed. Take the following medications with a SIP of water the morning of surgery: N/A DO NOT STOP ANY OF YOUR OTHER PRESCRIPTION MEDICATIONS PRIOR TO SURGERY ?EXCEPT THE FOLLOWING Medications to discontinue per physician N/A Date to take last dose Please no make-up, nail armenian, hairspray, perfume, deodorant, or body powder the day of surgery. No jewelry (including any body piercings) or valuables the day of surgery, leave them at home. Please take a shower or bath the night before, or the morning of, surgery with an antibacterial soap. Wear comfortable, loose fitting clothing. Children are encouraged to wear pajamas. - Jewelry must be removed prior to entering the operating room. Rings and piercings that are not removed may be cut off. - The hospital will not accept responsibility for valuables. - Please leave all valuables, including medications, at home the day of surgery. If you are going home after surgery, a licensed rental car ferry driver must drive you home. - NO public transportation without another adult if you receive anesthesia. - We recommend that an adult stay with you for 24 hours following discharge. - We also recommend that you do not drive, make important decision, drink alcoholic beverages, or take any drugs that were not prescribed by your health care provider for at least 24 hours after your discharge time. For Pediatric surgeries, we recommend two adults accompany the child home. Follow any additional instructions given to you from your surgeon. If you or anyone in your household have experienced Covid symptoms in the past week, please notify your surgeon or the nurse liaison at the phone number below for possible testing. Telephone instructions given to MARRY MCCLENDON and asked if any additional questions and then verbalized understanding. Patient advised to call surgeon office or pre surgery nurse liaison [phone] if any additional questions.
[2024-03-27 15:05] VITALS: BMI 30.1
[2024-04-04] VITALS (8 sets, daily range): BP systolic 101–130; BP diastolic 60–88; PULSE 64–85; RESP 12–20; TEMP 36.1–37.1; O2SAT 98–100
[2024-04-04] MEDS: LACTATED RINGERS 1,000 ML 30 ML IV CONT (06:35)
[2024-04-04 06:57] LABS: BEDSIDEPREGUCG Negative
--- NOTE | 2024-04-04 07:16 | P.PNAN_ITS ---
Anes - Initial Pre Proc Eval Procedure: Operation Date: 04/04/24 07:30 Proposed Procedures p Pilonidal Cystectomy - Graeme Hines MD Date/Time: 04/04/24 07:16 Surgeon: Graeme Hines MD Pre Op Diagnosis: Pilonidal Cyst Patient Data Age: 43 Gender: F Height: 1.78 m Weight: 93.1 kg Last Vital Signs Temp 98.7 F 04/04/24 06:19 Pulse 69 04/04/24 06:19 Resp 20 04/04/24 06:19 BP 127/66 04/04/24 06:19 Pulse Ox 98 04/04/24 06:19 O2 Del Method Room Air 04/04/24 06:19 Allergies Allergy/AdvReac Type Severity Reaction Status Date / Time No Known Allergies Allergy Mild Verified 04/04/24 06:18 Home Medications Medication Instructions Recorded Confirmed Type fenofibrate 54 mg tablet 54 mg PO DAILY #90 tabs 03/31/24 04/04/24 Rx Laboratory Tests 04/04/24 06:19 POC Urine HCG, Qual Negative POC Ur Preg QC Yes Patient hx anesthesia problems: post op nausea/vomiting Family hx anesthesia problems: none Results Review: All pre-operative results and documents have been reviewed as part of the pre- operative evaluation. COUNT INCLUDES THE [facility] Past Medical History Medical History (Updated 03/24/24 @ 10:27 by Analisa Ramirez PA-C) Hypertriglyceridemia No active medical problems Surgical History Surgical History No pertinent past surgical history Family History Family History Mother Yovany's disease Grandparent Diabetes mellitus Social History Social History Smoking packs per day: 1 Smoking cigarettes per day: 20.0 Smoking status: Former smoker Tobacco type: cigarettes Alcohol intake: current Alcohol use details: occasional Substance use: former Substance use type: former substance user, IV drugs and methamphetamine Last use: 9 MONTHS AGO Do You Feel Safe in your Home?: Yes Lack of Transportation: No Lack of Food: Never True Current Housing: I Have Housing Living arrangements: with family Occupation/Education: occupation Gender identity (if verbalized by the patient): Female Spiritual care concerns: No Anes - Eval Final PreProcedure Day of Procedure 04/04/24 07:16 Patient weight: obese Heart: regular rate and rhythm Lungs: clear to auscultation Airway: Mallampati scale class II Neurological: alert and oriented Last oral intake: >/= 8 hours ASA classification: II Emergent: no Anesthetic plan: proceed Anesthesia type and monitoring: general ETT and standard monitoring Results Review: All pre-operative results and documents have been reviewed as part of the pre-operative evaluation. Informed Consent: The patient's anesthetic plan and its attendant risks and benefits were discussed with the patient/family/POA. Questions were solicited and answers provided to the satisfaction of the patient/family/POA.
--- NOTE | 2024-04-04 07:22 | WPDHPUPDATE1 ---
History and Physical Update Update Date/Time: 04/04/24 07:22 History and Physical has been reviewed, including an updated exam of the patient. There are NO changes in the patient's condition. Risks, benefits, and alternatives have been discussed and questions answered. Patient agrees to proceed with procedure.
[2024-04-04] MEDS: LIDO 1%/EPINEPHRINE 1:100,000 50 ML VIAL 30 ML INFILTRATE (07:32)
[2024-04-04] MEDS: ceFAZolin 2 GM/D5W 50 ML 2 GM/50 ML BAG IVPB (07:32)
[2024-04-04] MEDS: BUPivacaine HCL 0.5% PF 30 ML VIAL INFILTRATE (07:32)
[2024-04-04] MEDS: BACITRACIN OINTMENT 15 GM TUBE 1 APPLIC TOPICAL (08:57)
[2024-04-04] MEDS: KETOROLAC 15 MG/ML VIAL (*BKC) IV PUSH (09:04)
--- NOTE | 2024-04-04 09:28 | W.PM.PROC2 ---
Procedure Note - Detailed Date of Procedure 04/04/24 Pre-op Diagnosis Pilonidal Cyst with draining sinus tract. Post-op Diagnosis Same Procedure Performed Extensive pilonidal cystectomy with excision of sinus tract. Surgeon Graeme Hines MD Anesthesia General Indications Patient is a 43-year-old female who has had issues with the pilonidal cyst on a chronic basis for several years. She has had multiple episodes of infection with abscess formation and either spontaneously drained the abscess or had to have the abscess incised and drained and a emergency room. There is presently no infection and she presents now for excision of the pilonidal cyst and draining sinus tract. Findings Patient had a pilonidal cyst with 2 pits along the upper 1/3 of the upper midline gluteal cleft. This led to a fibrous draining tract which extended to the patient right side off of the midline about 1cm lateral to the midline in the upper portion of the gluteal cleft. No active abscess underneath the draining sinus tract was noted. Description of Procedure After informed consent was obtained patient brought to the operating room where she was placed supine position on the gurney then placed under general endotracheal anesthesia. She was then turned onto the prone bert-knife position on operating table taking care to make sure that all the pressure points were well padded. The buttocks were then taped apart to expose the upper midline gluteal cleft. The area was then prepped and draped usual sterile fashion. A time-out was then performed correctly identifying the patient as well as procedure to be performed and she was given perioperative IV antibiotics. I then made a elongated elliptical incision curving just to the right of the upper midline gluteal cleft to include the draining sinus tract opening at the skin. Dissection carried through the dermis skin with a scalpel electrocautery was used to dissect down through the subcutaneous tissues all the way down to the presacral fascia on both sides of the incision. I excised out chronic fibrotic tissue as well as the cyst underneath the it is in the upper midline gluteal cleft. This is all done with electrocautery and the tissue was passed off to the table and sent to pathology. I then irrigated out the incision sterile saline solution. Hemostasis was then achieved utilized electrocautery. I then close incision with multiple layers of 0 Vicryl suture in the deep subcutaneous tissues just above the presacral fascia. This is then followed by 2 layers of interrupted 2-0 Vicryl sutures in the midlevel subcutaneous tissues. A layer of interrupted 3-0 Vicryl sutures were placed in the deep dermal layer. The skin edges were then approximated utilizing interrupted 3-0 nylon sutures placed in a vertical mattress fashion. The incision closed well without any tension. It was then anesthetized using 1% lidocaine mixed with 0.5% Marcaine and injected around the incision postoperative pain relief. The incision was then cleaned and then antibiotic ointment and a sterile dressing was applied. The patient tolerated the procedure well no complications. All sponges, needles, and instrument counts were correct at the end procedure. EBL was _30__cc. The patient was awakened and taken to recovery in stable and satisfactory condition. Implants None Estimated Blood Loss 30 Drains No Packing No Pathology Yes (Pilonidal cyst and sinus tract to pathology) Complications No immediate complications Condition Stable Disposition PACU [facility] Billing Surgery - Charge Forward: Surgery Billing
== END 2024-04-04 11:15 | disposition home or self-care (01) ==
PROVIDERS: PCP Family Medicine; Visit Provider Surgery
PROC: (CPT 11771; principal; 2024-04-04 07:30)
DX: L05.91 Pilonidal cyst without abscess (principal); E78.1 Pure hyperglyceridemia; E66.9 Obesity, unspecified; Z68.29 Body mass index [BMI] 29.0-29.9, adult; Z87.891 Personal history of nicotine dependence
CPT/HCPCS: 11771; 88305; A9270; J0690; J1100; J1200; J1885; J2250; J2405; J2704; J3010; J7120

== ENCOUNTER 2024-07-10 15:34 | Outpatient (CLI) | payer BC, SELFPAY ==
--- NOTE | ~2024-07-10 | MM_ITS ---
EXAMINATION: MM screening jose BI w miles HISTORY: Screening mammogram TECHNIQUE: Craniocaudal and mediolateral oblique 3-D tomosynthesis images were obtained and synthetic 2-D images were generated. CAD analysis was submitted and interpreted. COMPARISON: No prior mammogram is available for comparison at this institution. BREAST PARENCHYMAL COMPOSITION:Dense: The breasts are extremely dense, which lowers the sensitivity o f mammography. FINDINGS: Possible mass or asymmetry at the lower right breast. Questionable mass or asymmetry at the outer left breast. No suspicious microcalcific microcalcifications. IMPRESSION: Bilateral breast asymmetries or possible masses, as detailed above. Spot compression views and possi elli ultrasound, are recommended for further evaluation. BI-RADS Category 0: Incomplete: Needs additional imaging evaluation. Reviewed, dictated and finalized at [facility]. ICAL PRODUCT SALES CONSULTANT IMPRESSION: Bilateral breast asymmetries or possible masses, as detailed above. Spot compr ession views and possibly ultrasound, are recommended for further evaluation. BI-RADS Category 0: Incomplete: Needs additional imaging evaluation.
== END 2024-07-10 15:35 | disposition home or self-care (01) ==
LOC: ANHIMG 15:35
PROVIDERS: PCP Family Medicine; Visit Provider Student in an Organized Health Care Education/Training Program
DX: Z12.31 Encounter for screening mammogram for malignant neoplasm of breast (principal); R92.8 Other abnormal and inconclusive findings on diagnostic imaging of breast
CPT/HCPCS: 77063; 77067

== ENCOUNTER 2024-08-08 12:35 | Outpatient (CLI) | payer BC, SELFPAY ==
--- NOTE | ~2024-08-08 | MMUS_ITS ---
EXAMINATION: MM diagnostic jose BI w miles, US breast BI complete HISTORY: Follow-up breast asymmetries TECHNIQUE: Additional 3-D tomosynthesis images of the breasts were performed and synthetic 2-D images were generated. CAD analysis was submitted and interpreted. High resolution bilateral complete breas t ultrasound was performed. COMPARISON: 07/10/2024 BREAST PARENCHYMAL COMPOSITION: Dense: The breasts are extremely dense, which lowers the sensitivity of mammography. FINDINGS: MAMMOGRAPHIC FINDINGS: No discrete mass, architectural distortion or suspicious calcifications are identified in either [address]. ULTRASOUND: Complete US of all 4 quadrants of the breast/s and retroareolar region was reviewed. Right breast: There are multiple cyst of the right breast. At 12:00, 2 cm from the nipple there is a solid hypoechoic mass with internal vascularity measuring 10 x 10 x 7 mm. At 6:00, 3 cm from the nipp le there is an oval hypoechoic mass measuring 7 x 6 x 4 mm with no significant posterior features or internal vascularity, likely benign. Left breast: There are cysts of the left breast, largest measuring 1.4 cm at 2:00, 5 cm from the nipp le. No suspicious masses in the left breast to suggest malignancy. IMPRESSION: 1. Solid hypoechoic vascular mass of the right breast at 12:00, 2 cm from the nipple measuring 10 mm. Ultrasound-guided right breast biopsy recommended. 2. Probable benign hypoechoic mass of the right breast at 6:00, 3 cm from the nipple. Six-month follo w-up right breast ultrasound recommended. BI-RADS category 4, suspicious findings. Reviewed, dictated and finalized at location [facility]. C THERAPY SPECIALIST IMPRESSION: 1. Solid hypoechoic vascular mass of the right breast at 12:00, 2 cm from the n ipple measuring 10 mm. Ultrasound-guided right breast biopsy recommended. 2. Probable benign hypoechoic mass of the right breast at 6:00, 3 cm from the n ipple. Six-month follow-up right breast ultrasound recommended. BI-RADS category 4, suspicious findings.
== END 2024-08-08 12:36 | disposition home or self-care (01) ==
LOC: ANHIMG 12:38
PROVIDERS: PCP Family Medicine; Visit Provider Student in an Organized Health Care Education/Training Program
DX: N63.15 Unspecified lump in the right breast, overlapping quadrants (principal)
CPT/HCPCS: 76641; 77062; 77066; G0279

== ENCOUNTER 2024-10-01 08:31 | Outpatient (CLI) | payer BC, SELFPAY ==
--- NOTE | ~2024-10-01 | MMUS_ITS ---
US_MAGSEEDRT_US, MM post biopsy diagnostic RT 10/01/2024 09:17 (accession [id number]), 10/01/2024 09:14 (accession [id number]) Indication: Magseed Placement. Recent discordant biopsy. Procedure: High-resolution Limited ultrasound of the right breast. Post biopsy mammogram for marker p lacement. Comparison: 08/08/2024 Findings: The area of interest in the right breast was cleaned using sterile technique. 1% lidocaine was used for anesthesia. Using sonographic guidance a needle was advanced into the mass of interest a t 12:00, 2 cm from the nipple. Magseed marker was deployed using sonographic guidance. Subsequent jose mogram demonstrates the magseed device in the upper outer quadrant of the right breast adjacent to th e previously deployed tissue marker from prior ultrasound-guided biopsy. Impression: 1: Successful magseed deployment using ultrasound guidance. Reviewed, dictated and finalized at location B. TREER Impression: 1: Successful magseed deployment using ultrasound guidance. Impression: 1: Successful magseed deployment using ultrasound guidance.
--- OUTSIDE RECORDS SUMMARY | 2024-10-01 08:59 | XMS_ITS | Clinical Summary ---
Author Organization [facility] [employer] Address [address] [place] [address] Care Team Providers Care Auxiliary Operator Name Role Phone Osmar Wang MD Primary Care Provider Source Comments [facility] [employer],non-owned Affiliates and Associated Physician Practices is amultiple site organization consisting of ambulatory clinics and hospital sitesin [place], [place], [place] and [place]. This disclosure is being madepursuant to the Care Everywhere program and may not contain all information available regarding this patient. Last updated 18.[facility] [employer] Allergies No known active allergies Medications * Be aware that medications may not be up to date on this document. Alwaysverify current medications with the patient. Medication Sig Dispensed Refills Start Date End Date Status hydrocodone-acetaminop hen (NORCO) 5-325 MG tablet Take 2 Tabs by mouth every 6 hours as needed for Pain 15 Tab 0 10/29/2015 Active Social History Tobacco Use Types Packs/Day Years Used Date Smoking Tobacco: Every Day Cigarettes Sex and Gender Information Value Date Recorded Sex Assigned at Not on file Gender Identity Not on file Sexual Orientation Not on file Last Filed Vital Signs Vital Sign Reading Time Taken Comments Blood Pressure 120/76 10/29/2015 6:04 PM MACHINE CHAIN MAKER Pulse 95 10/29/2015 6:04 PM MACHINE CHAIN MAKER Temperature 36.7 C (98 F) 10/29/2015 3:00 PM MACHINE CHAIN MAKER Respiratory Rate 16 10/29/2015 6:04 PM MACHINE CHAIN MAKER Oxygen Saturation 98% 10/29/2015 6:04 PM MACHINE CHAIN MAKER Inhaled Oxygen Concentration - - Weight 82.1 kg (181 lb) 10/29/2015 3:00 PM MACHINE CHAIN MAKER Height 175.3 cm (5' 9.02 ) 10/29/2015 3:00 PM CS T Body Mass Index 26.72 10/29/2015 3:00 PM MACHINE CHAIN MAKER Plan of Treatment Health Maintenance Due Date Last Done Comments LIPID TESTING 1981 MAMMOGRAM 1981 PAP SMEAR 1981 HIV SCREENING 1996 HEPATITIS C SCREENING 07/19/1999 DTAP/TDAP/TD VACCINES (1 - Tdap) 2000 HEPATITIS B VACCINE (1 of 3 - 19+ 3-dose series) 2000 PNEUMOCOCCAL VACCINE (1 of 2 - PCV) 2000 COVID-19 VACCINE (1 - 2023-2 5 season) 2024 INFLUENZA VACCINE (#1) 2024 DEPRESSION SCREENING 08/20/2024 ZOSTER VACCINE (1 of 2) 2031 HIB VACCINE Aged Out No longer eligi ble based on patient's age to complete this topic HPV VACCINE Aged Out No longer eligi ble based on patient's age to complete this topic MENINGOCOCCAL (Group B) VACCINE Aged Out No longer eligible based on patient's age to complete this topic MENINGOCOCCAL VACCINE Aged Out No nba kadeem eligible based on patient's age to complete this topic Care Teams Auxiliary Operator Relationship Specialty Start Date End Date Osmar Wang MD [facility] [place] [address] PCP - General Family Medicine 10/29/15
--- OUTSIDE RECORDS SUMMARY | 2024-10-01 09:00 | XMS_ITS | Referral Summary ---
Author Organization [facility] Address [address] [place] [address] Care Team Providers Care Machine Operator Picker Name Role Phone Osmar Wang MD Primary Care Provider [phone] Source Comments [facility] [employer],non-owned Affiliates and Associated Physician Practices is amultiple site organization consisting of ambulatory clinics and hospital sitesin [place], [place], [place] and [place]. This disclosure is being madepursuant to the Care Everywhere program and may not contain all information available regarding this patient. Last updated 18.[facility] [employer] Allergies No known active allergies Medications * [...] Comments Blood Pressure 120/76 10/29/2015 6:04 PM CROWN IRONER OPERATOR Pulse 95 10/29/2015 6:04 PM CROWN IRONER OPERATOR Temperature 36.7 C (98 F) 10/29/2015 3:00 PM CROWN IRONER OPERATOR Respiratory Rate 16 10/29/2015 6:04 PM CROWN IRONER OPERATOR Oxygen Saturation 98% 10/29/2015 6:04 PM CROWN IRONER OPERATOR Inhaled Oxygen Concentration - - Weight 82.1 kg (181 lb) 10/29/2015 3:00 PM CROWN IRONER OPERATOR Height 175.3 cm (5' 9.02 ) 10/29/2015 3:00 PM CS T Body Mass Index 26.72 10/29/2015 3:00 PM CROWN IRONER OPERATOR Plan of Treatment Not on file Care Teams Machine Operator Picker Relationship Specialty Start Date End Date Osmar Wang MD [address] [place] [address] PCP - General Family Medicine 10/29/15
--- OUTSIDE RECORDS SUMMARY | 2024-10-01 09:00 | XMS_ITS | Patient Health Summary ---
Author Organization [facility] Address [address] [place] [address] Care Team Providers Care Waybill Clerk Name Role Phone Osmar Wang MD Primary Care Provider [phone] Note from [facility],non-owned Affiliates and Associated Physician Practices is amultiple site organization consisting of ambulatory clinics and hospital sitesin [place] and [place]. This disclosure is being madepursuant to the Care Everywhere program and may not contain all information available regarding this patient. Last updated 18.[facility] Allergies No known active allergies Medications * Be aware that medications may not be up to date on this document. Alwaysverify current medications with the patient. * hydrocodone-acetaminophen (NORCO) 5-325 MG tablet(Started 10/29/2015) Take 2 Tabs by mouth every 6 hours as needed for Pain Social History Tobacco Use Types Packs/Day Years Used Date Smoking Tobacco: Every Day Cigarettes Sex and Gender Information Value Date Recorded Sex Assigned at Not on file Gender Identity Not on file Sexual Orientation Not on file Last Filed Vital Signs Vital Sign Reading Time Taken Comments Blood Pressure 120/76 10/29/2015 6:04 PM POOL TECHNICIAN Pulse 95 10/29/2015 6:04 PM POOL TECHNICIAN Temperature 36.7 C (98 F) 10/29/2015 3:00 PM POOL TECHNICIAN Respiratory Rate 16 10/29/2015 6:04 PM POOL TECHNICIAN Oxygen Saturation 98% 10/29/2015 6:04 PM POOL TECHNICIAN Inhaled Oxygen Concentration - - Weight 82.1 kg (181 lb) 10/29/2015 3:00 PM POOL TECHNICIAN Height 175.3 cm (5' 9.02 ) 10/29/2015 3:00 PM CS T Body Mass Index 26.72 10/29/2015 3:00 PM POOL TECHNICIAN Procedures * CULTURE WOUND+GRAM STAIN(Performed 10/29/2015) * ED INCISION AND DRAINAGE(Performed 10/29/2015) Performed for Pilonidal cyst with abscess Results * (ABNORMAL) CULTURE WOUND+GRAM STAIN (10/29/2015 6:06 PM POOL TECHNICIAN) Culture Growth from broth only Prevotella buccae(A) MARYAM 11/06/2015 2:30 PM CDT [facility] Culture Growth of normal skin satya MARYAM 11/06/2015 2:30 PM CDT [facility] Gram Stain Many White blood cells 11/06/2015 2:30 PM CDT [facility] Gram Stain Many Gram positive cocci 11/06/2015 2:30 PM CDT [facility] Gram Stain Many Gram negative bacilli 11/06/2015 2:30 PM CDT [facility] Gram Stain Many Gram positive bacilli 11/06/2015 2:30 PM T [facility] Microbiology ENTIRE COCCYX / Unknown 10/29/2015 6:06 PM POOL TECHNICIAN 10/29/2015 6:22 PM POOL TECHNICIAN [facility] - MICRO BIOLOGY ORDERABLES Performing Organization Address City/State/[facility] Co de Phone Number [facility] [address] * ED INCISION AND DRAINAGE (10/29/2015 6:03 PM POOL TECHNICIAN) Narrative Khloe Hoffmann APRN-CNP - 10/29/2015 6:03 PM POOL TECHNICIAN Khloe Hoffmann APRN-CNP 10/29/2015 6:03 PM Provider contact with the patient: 10/29/2015 17:04 Marivel Zimmerman [id number] [facility] History Chief Complaint Patient presents with Abscess HPI Pt is here today with abscess to coccyx area that started 4-5 days ago. It is getting worse. Rates pain as 9/10. She denies any fever or chills. No vomiting. She has history of abscesses and MRSA. She has had 5 previous abscesses in this same location. No past medical history on file. Past Surgical History Procedure Laterality Date Acl reconstruction right knee No family history on file. History Social History Marital Status: Single Spouse Name: N/A Number of Children: N/A Years of Education: N/A Occupational History Not on file. Social History Main Topics Smoking status: Current Every Day Smoker -- 0.50 packs/day Types: Cigarettes Smokeless tobacco: Not on file Alcohol Use: Not on file Drug Use: Not on file Sexual Activity: Not on file Other Topics Concern Not on file Social History Narrative No narrative on file Review of Systems Review of Systems Constitutional: Negative. Negative for fever, chills and malaise/fatigue. HENT: Negative. Eyes: Negative. Respiratory: Negative. Negative for cough, shortness of breath and wheezing. Cardiovascular: Negative. Negative for chest pain and palpitations. Gastrointestinal: Negative. Negative for nausea, vomiting and abdominal pain. Genitourinary: Negative. Musculoskeletal: Negative. Negative for myalgias, back pain, falls and neck pain. Skin: As per HPI Neurological: Negative. Negative for loss of consciousness and headaches. Endo/Heme/Allergies: Negative. Does not bruise/bleed easily. Physical Exam BP 128/74 mmHg Pulse 107 Temp(Src) 98 F Resp 18 Ht 1.753 m (5' 9.02 ) Wt 82.101 kg (181 lb) BMI 26.72 kg/m2 SpO2 99% Physical Exam Constitutional: She appears well-developed and well-nourished. HENT: Head: Normocephalic and atraumatic. Neck: Normal range of motion. Neck supple. Cardiovascular: Normal rate, regular rhythm and normal heart sounds. Pulmonary/Chest: Effort normal and breath sounds normal. No respiratory distress. She has no wheezes. She has no rales. Abdominal: Soft. Bowel sounds are normal. She exhibits no distension. There is no tenderness. Skin: There is erythema. Raised swollen tender area to the coccyx approx 7-8cm with center fluctuance. Nursing note and vitals reviewed. Medications Current Outpatient Prescriptions Medication Sig Dispense Refill sulfamethoxazole-trimethoprim (BACTRIM DS; SEPTRA DS) 800-160 MG tablet Take 1 Tab by mouth every 12 hours for 10 days 20 Tab 0 hydrocodone-acetaminophen (NORCO) 5-325 MG tablet Take 2 Tabs by mouth every 6 hours as needed for Pain 15 Tab 0 Procedures Incision/Drainage Date/Time: 10/29/2015 5:40 PM Performed by: KHLOE HOFFMANN Authorized by: KHLOE HOFFMANN Consent: Verbal consent obtained. Written consent obtained. Risks and benefits: risks, benefits and alternatives were discussed Consent given by: patient Patient understanding: patient states understanding of the procedure being performed Patient consent: the patient's understanding of the procedure matches consent given Procedure consent: procedure consent matches procedure scheduled Relevant documents: relevant documents present and verified Site marked: the operative site was marked Patient identity confirmed: verbally with patient and arm band Type: pilonidal cyst Location: coccyx. Anesthesia: local infiltration Local anesthetic: lidocaine 1% without epinephrine Anesthetic total: 5 ml Scalpel size: 11 Incision type: single straight Complexity: simple Drainage: purulent Drainage amount: copious Wound treatment: wound left open Patient tolerance: Patient tolerated the procedure well with no immediate complications ECG Interpretation ECG Interpretation Lab/SPO2 Interpretation No results found for this visit on 10/29/15. No orders to display Progress Notes ED Course Medical Decision Making I have reviewed the: Nursing Notes and Vitals. Orders Placed This Encounter ED INCISION AND DRAINAGE lidocaine (XYLOCAINE MPF) 1 % injection hydrocodone-acetaminophen (NORCO) 5-325 MG tablet 2 Tab sulfamethoxazole-trimethoprim (BACTRIM DS; SEPTRA DS) 800-160 MG tablet hydrocodone-acetaminophen (NORCO) 5-325 MG tablet Clinical Impression Final diagnoses: Pilonidal cyst with abscess Khloe Hoffmann PHARMACY ACCOUNT DIRECTOR-SAP ARCHITECT PROCEDURE/M INOR SURGICAL ORDERABLES Care Teams Waybill Clerk Relationship Specialty Start Date End Date Osmar Wang MD [address] [place] [address] PCP - General Family Medicine 10/29/15
--- OUTSIDE RECORDS SUMMARY | 2024-10-01 09:00 | XMS_ITS | Clinical Summary ---
Author Organization [facility] Address [address] [place] [id number] Care Team Providers Care Sheet Metal Worker Apprentice Name Role Phone Unavailable Primary Care Provider Unavailabl e Social History Tobacco Use Types Packs/Day Years Used Date Smoking Tobacco: Never Assessed Comments Unknown Sex and Gender Information Value Date Recorded Sex Assigned at Not on file Legal Sex Female 4:52 PM CDT Gender Identity Not on file Sexual Orientation Not on file Plan of Treatment Health Maintenance Due Date Last Done Comments Cervical Cancer Screening Pa p Smear (Age 30 to 64) Every 3 Years 1981 Annual Physical 1984 Hepatitis C 1999 DTaP, Tdap and Td Vaccines ( 1 - Tdap) 2000 Hepatitis B Vaccines (1 of 3 - 19+ 3-dose series) 2000 Cervical Cancer Screening Pa p with HPV Testing (Age 30 to 64) Every 5 Years 2011 Cervical Cancer Screening with HPV 2011 Mammogram Screening 2021 COVID-19 Vaccine (2023-2 5 season) 2024 Influenza Adult (#1) 2024 HPV Vaccines Aged Out No longer eligi ble based on patient's age to complete this topic Meningococcal B Vaccine Aged Out No l onger eligible based on patient's age to complete this topic Meningococcal Vaccine Aged Out No nba kadeem eligible based on patient's age to complete this topic Pneumococcal Vaccine: Pediat rics (0 to 5 Years) and At-Risk Patients (6 to 64 Years) Aged Out No longer eligible b ased on patient's age to complete this topic RSV Immunizations Under 20 Months Aged Out No longer eligible based on patient's age to complete this topic
== END 2024-10-01 08:32 | disposition home or self-care (01) ==
LOC: ANHIMG 08:34
PROVIDERS: PCP Family Medicine; Visit Provider Surgery
DX: Z45.811 Encounter for adjustment or removal of right breast implant (principal); N63.15 Unspecified lump in the right breast, overlapping quadrants; N63.10 Unspecified lump in the right breast, unspecified quadrant
CPT/HCPCS: 19285; 77065; A4648

== ENCOUNTER 2024-10-22 00:16 | Day surgery (SDC) | payer BC, SELFPAY ==
[2024-10-13 08:21] VITALS: BMI 30.3
--- NOTE | 2024-10-13 08:28 | PC.NURSE ---
Report to the Outpatient Waiting Room, entrance under the green pavilion located off [facility], at time _0600_ on date _[id number]_. Planned Procedure Time: _0730_.? Time changes happen often and if your time is changed the preop area will call you the afternoon before. - You and your visitor will be asked to self-screen and do not enter if you have any COVID symptoms. Please call surgeon if you need to reschedule. - A mask is optional within the hospital at this time. Patients may have clear liquids (water, carbonated beverages, clear teas, apple juice) until 3 hours prior to surgery with a maximum of 20 ounces. - No food from midnight until time of surgery and no smoking, or chewing tobacco (or any form of nicotine). No chewing gum, candy or mints. Take only the following medications with a SIP of water on the morning of surgery: ___None____ DO NOT STOP ANY OF YOUR OTHER PRESCRIPTION MEDICATIONS PRIOR TO SURGERY EXCEPT THE FOLLOWING Hold all vitamins and supplements for 3 days per anesthesiologist. Medications to discontinue per physician Date to take last dose Please no make-up, nail [place], hairspray, perfume, deodorant, or body powder the day of surgery.? No jewelry (including any body piercings) or valuables the day of surgery, leave them at home.? Please take a shower or bath the night before, or the morning of, surgery with an antibacterial soap.? Wear comfortable, loose fitting clothing. - Jewelry must be removed prior to entering the operating room.? Rings and piercings that are not removed may be cut off. - The hospital will not accept responsibility for valuables.? - Please leave all valuables, including medications, at home the day of surgery. If you are going home after surgery, a licensed warehouse delivery driver must drive you home.? - NO public transportation without another adult if you receive anesthesia. - We recommend that an adult stay with you for 24 hours following discharge. - We also recommend that you do not drive, make important decision, drink alcoholic beverages, or take any drugs that were not prescribed by your health care provider for at least 24 hours after your discharge time. Follow any additional instructions given to you from your surgeon. Telephone instructions given to Christ__and asked if any additional questions and then verbalized understanding. Patient advised to call surgeon office or pre surgery nurse liaison [phone] if any additional questions.
[2024-10-22] VITALS (8 sets, daily range): BP systolic 99–114; BP diastolic 50–68; PULSE 65–79; RESP 12–16; TEMP 36.8–36.9; O2SAT 93–99; BMI 29.8
--- NOTE | ~2024-10-22 | MM_ITS ---
EXAMINATION: MM_FAXITRON_MG INDICATION: Right breast excisional biopsy TECHNIQUE: 2 specimen radiographs are submitted for review. COMPARISON: None available FINDINGS: The biopsy marker and magseed are contained within the specimen radiographs. IMPRESSION: 1. Biopsy marker and magseed within the specimen radiographs. Reviewed, dictated and finalized at location . ORT SERVICE TECH
--- OUTSIDE RECORDS SUMMARY | 2024-10-22 00:20 | XMS_ITS | Referral Summary ---
Author Organization [facility] Address [address] [place] [address] Care Team Providers Care Conveyor Belt Repairer Name Role Phone Osmar Wang MD Primary Care Provider [phone] Source Comments [facility] [employer],non-owned Affiliates and Associated Physician Practices is amultiple site organization consisting of ambulatory clinics and hospital sitesin [place], [place], [place] and [place]. This disclosure is being madepursuant to the Care Everywhere program and may not contain all information available regarding this patient. Last updated 18.[facility] [employer] Allergies No known active allergies Medications * [...] Comments Blood Pressure 120/76 10/29/2015 6:04 PM MANAGER MASS Pulse 95 10/29/2015 6:04 PM MANAGER MASS Temperature 36.7 C (98 F) 10/29/2015 3:00 PM MANAGER MASS Respiratory Rate 16 10/29/2015 6:04 PM MANAGER MASS Oxygen Saturation 98% 10/29/2015 6:04 PM MANAGER MASS Inhaled Oxygen Concentration - - Weight 82.1 kg (181 lb) 10/29/2015 3:00 PM MANAGER MASS Height 175.3 cm (5' 9.02 ) 10/29/2015 3:00 PM CS T Body Mass Index 26.72 10/29/2015 3:00 PM MANAGER MASS Plan of Treatment Not on file Care Teams Conveyor Belt Repairer Relationship Specialty Start Date End Date Osmar Wang MD [address] [place] [address] PCP - General Family Medicine 10/29/15
--- OUTSIDE RECORDS SUMMARY | 2024-10-22 00:20 | XMS_ITS | Data Portability ---
Author Organization [facility] [place] Address [address] [place] [address] [place] [address] Care Team Providers Care Graduate Rn Name Role Phone BARBARA DANIELS Primary Care Provider Assessment Encounter Date Assessment Date Assessment LastModified by Organization Details LastModified Time 04/02/2023 04/02/2023 reviewed imaging and labs from ED, discussed imaging and diagnosis with pt complete antibiotic course repeat US 1 mo for cyst resolution/impro vement unable to do combo OCP for cyst prevention, but offered POP to try to prevent. she declines at this time. [email or web address] Not available 04/02/2023 22:11:26 04/01/2024 04/01/2024 Annual gynecological exam performed. Patient will come back in a year unless there are new symptoms. Not available 04/01/2024 10:54:21 Plan of Treatment Reminders Order Date Submit Date Provider Last Modified By Organization Details Last Modified Time Details Appointments None recorded. Lab None recorded. Referral None recorded. Procedures None recorded. Surgeries None recorded. Imaging MAMMO, screening, digital, bilateral 2023 [facility], [address], [place], [address], 05:01:19 US, pelvis, complete 2023 024 [facility], [address], [place], [address], 05:01:19 US, transvagina l 2022 023 [email or web address] [address], [place], [address], 3 22:18:20 US, pelvis 2022 023 [email or web address] [address], [place], [address], 3 21:03:37 US, transvagina l 2022 023 [email or web address] [address], [place], [address], 3 21:03:37 Medication Orders None recorded. Patient TargetsNo targets recorded. Patient InstructionsNo instructions recorded. Reason for Referral None Reported. Results Created Date Observation Date Name Description Value Unit Range Abnormal Flag Note LastModifiedBy Organization Detail LastModifiedTime 04/01/20 24 04/01/2024 IMAGE GUIDE D PAP AND HPV REGAR DLESS image guided Pap, HPV regardless of Pap result SEE RESULT S BELOW CASE REPOR T: Cytol ogy Gynec ologi allison Repor t Case: [id number] [address] Provi mildred: Lo Vega, JOSE DANIEL Colle cted: 04/01 1554 Order ing Locat ion: [place] Patho logy Recei terrell: 04/02 0830 First Scree n: Saeed morgan, Moe ed, CT Rescr een: Jay Austin Speci men: Scree hiram Pap - Image d, Cervi x STATE MENT OF ADEQU ACY: Unsat isfac leanna for evalu ation . ----- ----- ----- ----- ----- ----- ----- ----- ----- ----- ----- ----- ----- ----- ----- ----- ----- ---- FINAL DIAGN OSIS: Unsat isfac tory for evalu ation . Scant squam ous cellu larit y due to exces s inter tino g blood . Elect tosha ackerman katina d by Jay Austin on 2023 at 4:58 PM ----- ----- ----- ----- ----- ----- ----- ----- ----- ----- ----- ----- ----- ----- ----- ----- ----- ---- HPV RESUL TS: HPV mRNA E6/E7 : No HPV mRNA Detec noah NOTE: This high risk HPV mRNA assay detec ts fourt een high- risk HPV types (16, 18, 31, 33, 35, 39, 45, 51, 52, 56, 58, 59, 66, 68) witho ut diffe renti ation . COMME NT: This speci men was revie wed by a Cytot echno logis t and/o r Patho logis t (as indic ated in this repor t) after evalu ation using the Thinp rep Imagi ng Syste m. NOTE: A repro cessi ng proce dure was perfo rmed and the addit ional slide confi allie the diagn osis of rustat [facility] for evalu ation . CLINI ALLISON INFOR MATIO N: Menst rual Statu s: LMP (if appli cable ): Clini allison Histo ry/Pr eviou s Pap: Type of Neopl birdie (if appli cable ): Signi fican t Clini allison Findi ngs: Other Histo ry: Hormo margareth (if appli cable ): Not Available [facility] (Lab) [address], [place], [address], 04/09/2024 18:03:47 06/10/20 24 06/10/2024 IMAGE GUIDE D PAP AND HPV REGAR DLESS image guided Pap, HPV regardless of Pap result SEE RESULT S BELOW CASE REPOR T: Cytol ogy Gynec ologi allison Repor t Case: [id number] [address] Provi mildred: Naveed Ames MD Colle cted: 06/10 1645 Order ing Locat ion: [place] Patho loggreta Recei terrell: 06/11 0215 First Vannessa n: Jose Daniel Soriano, CT Rescr een: Jarrell Parker , CT Speci men: Vannessa gandhi Pap - Image d, Cervi x STATE MENT OF ADEQU ACY: Satis facto ry for evalu ation Trans forma tion zone compo nent prese nt ----- ----- ----- ----- ----- ----- ----- ----- ----- ----- ----- ----- ----- ----- ----- ----- ----- ---- FINAL DIAGN OSIS: Negat lottie for Intra epith elial Kelvin green or Bart wiggins (NIL) . Shift in satya sugge stive of bacte rial vagin osis. Elect tosha sparks by Jarrell Parker , CT on 06/16 at 5:20 PM ----- ----- ----- ----- ----- ----- ----- ----- ----- ----- ----- ----- ----- ----- ----- ----- ----- ---- HPV RESUL TS: HPV mRNA E6/E7 : No HPV mRNA Detec noah NOTE: This high risk HPV mRNA assay detec ts fourt een high- risk HPV types (16, 18, 31, 33, 35, 39, 45, 51, 52, 56, 58, 59, 66, 68) witho ut diffe renti ation . COMME NT: This speci men was revie wed by a Cytot echno logis t and/o r Patho logis t (as indic ated in this repor t) after evalu ation using the Thinp rep Imagi ng Syste m. CLINI ALLISON INFOR MATIO N: Menst rual Statu s: LMP (if appli cable ): Clini allison Histo ry/Pr eviou s Pap: Type of Neopl birdie (if appli cable ): Signi fican t Clini allison Findi ngs: Other Histo ry: Hormo margareth (if appli cable ): PAP EDUCA RONALD L NOTE: The Pap Test is a scree hirma test with an inher ent false negat lottie rate. Liqui d-bas ed sampl ing may decre ase, but will not elimi veronica, false negat lottie resul ts. A negat lottie resul t does not precl ude the prese nce and/o r devel opmen t of disea se, since the prese nce of abnor mal cells in the sampl e depen ds on the locat ion of the lesio n and sampl ing techn ique. Abdirahman nued regul ar scree hiram is the best metho d of cance r preve ntion . If repor noah cytol ogic findi ng do not corre late with physi allison and/o r histo rical findi ngs, furth er inves tigat ion is recom brianna d, as clini kelly rousseau nted. Not Available [facility] (Lab) [address] [facility], [place], [address], 06/16/2024 18:28:20 12/28/19 23 12/27/2022 US, pelvi s No observ ation record ed. [email or web address] [place] [address], [place], [address], 12/27/2022 13:25:33 12/28/19 23 12/27/2022 US, trans debi wright No observ ation record ed. [email or web address] [place] [address], [place], [address], 12/27/2022 13:25:24 12/28/19 23 12/27/2022 US, pelvi s No observ ation record ed. GIDEONMORIAH Mend[address], [place], [address], 01/12/2023 09:06:22 05/04/20 23 05/04/2023 US, trans vagin al No observ ation record ed. varsha [place] [address], [place], [address], 05/04/2023 17:35:58 05/04/20 23 05/04/2023 US, trans vagin al No observ ation record ed. GIDEON [address], [place], [address], 05/10/2023 08:08:43 Result Notes None recorded. Problems Name Problem SNOMED Code Status Onset Date Resolution Date Notes Provider Name and Address Organization Details Recorded Time Cigarette smoker 23323420 Active 023 Isha Quiros MD [address], [place], [address], [facility] 3 22:11:26 Problem Notes None recorded. Procedures Surgical History Date Name Laterality Status Provider Name and Address Organization Details Recorded Time 3 Date of Last Pap Smear completed Brianna Christianson [facility] 12/21/2022 12:26:15 0 procedure completed Brianna Christianson [facility] 12/21/2022 12:30:05 0 Orthopedic Surgery completed Elisabeth Ascencio [facility] 09/07/2020 14:39:22 Imaging Results Imaging Date Name Status LastModified by Organization Details LastModified Time 12/27/2022 US, pelvis completed aaliyah Torres [address], [place], [address], 12/27/2022 13:25:33 12/27/2022 US, transvaginal completed aaliyah turcios [address], [place], [address], 12/27/2022 13:25:24 12/27/2022 US, pelvis completed GIDEON Cinthya [address], [place], [address], 01/12/2023 09:06:22 05/04/2023 US, transvaginal completed varsha turcios [address], [place], [address], 05/04/2023 17:35:58 05/04/2023 US, transvaginal completed GIDEON C[address]ya [address], [place], [address], 05/10/2023 08:08:43 Procedure Notes None recorded. Medical Equipment None Reported. Allergies No known drug allergies Medications Name Sig Start Date Stop Date Status Note LastModified by Organization Details LastModified Time methocarbamo l 500 mg tablet TAKE 1 TABLET BY MOUTH THREE TIMES DAILY 12/21 completed Not Available Not Available Not Available doxycycline hyclate 100 mg capsule 04/01 completed Not Available Not Available Not Available clindamycin HCl 300 mg capsule 09/07 completed Not Available Not Available Not Available ibuprofen 800 mg tablet 09/07 completed Not Available Not Available Not Available phenazopyrid ine 200 mg tablet TAKE 1 TABLET BY MOUTH 3 TIMES A DAY FOR 2 DAYS. 12/21 completed Not Available Not Available Not Available metronidazol e 500 mg tablet 04/01 completed Not Available Not Available Not Available ciprofloxaci n 500 mg tablet TAKE 1 TABLET BY MOUTH EVERY 12 HOURS FOR 7 DAYS. 12/21 completed Not Available Not Available Not Available sulfamethoxa zole 800 mg-trimethop rim 160 mg tablet TAKE 1 TABLET BY MOUTH EVERY 12 HOURS 04/01 completed Not Available Not Available Not Available tramadol 50 mg tablet TAKE 1 TABLET BY MOUTH EVERY 6 HOURS NEEDED FOR PAIN 04/01 completed Not Available Not Available Not Available amoxicillin 875 mg tablet 09/07 completed Not Available Not Available Not Available benzonatate 100 mg capsule 09/07 completed Not Available Not Available Not Available cephalexin 500 mg capsule TAKE 1 CAPSULE BY MOUTH EVERY 6 HOURS 04/01 completed Not Available Not Available Not Available amoxicillin 875 mg-potassium clavulanate 125 mg tablet TAKE 1 TABLET BY MOUTH EVERY 12 HOURS UNTIL ALL TAKEN 12/21 completed Not Available Not Available Not Available oxycodone 5 mg tablet TAKE 1 TABLET BY MOUTH EVERY 6 HOURS NEEDED FOR PAIN 06/10 completed Not Available Not Available Not Available fenofibrate 54mg active Not Available Not A vailable Not Available fenofibrate 54 mg tablet TAKE 1 TABLET BY MOUTH ONCE DAILY active Not Available Not Available No t Available Vitals Date Recorded Body height Body mass index (BMI) Body weight Systolic blood pressure Diastolic blood pressure Provider Name and Address Organization Details Last Updated DateTime 04/02/2023 175.26 cm 28.2 kg/m2 74087.14 g 125 mm[Hg] 83 mm[Hg] Ayanna Kim [facility] 3 17:36:32 Date Recorded Body height Body mass index (BMI) Body weight Systolic blood pressure Diastolic blood pressure Provider Name and Address Organization Details Last Updated DateTime 04/01/2024 175.26 cm 30.3 kg/m2 10058.44 g 120 mm[Hg] 80 mm[Hg] Natividadmai Walton [facility] 4 15:23:44 Date Recorded Body height Body mass index (BMI) Body weight Systolic blood pressure Diastolic blood pressure Provider Name and Address Organization Details Last Updated DateTime 06/10/2024 175.26 cm 30.4 kg/m2 74246.03 g 116 mm[Hg] 75 mm[Hg] Kathi Gibbs [facility] 4 16:10:46 Social History Question Answer Notes LastModified by Organizat ion Details LastModified Time Tobacco Smoking Status Current Every Day Smoker Ramya martinez [facility] 12/27/2022 09:31:37 What Is Your Level Of Alcohol Consumption? None Information not available 09/07/2020 If You Are , What Was Your Level Of Alcohol Consumption Prior To ? None [email or web address] Information not available 12/27/2022 Are You Blind Or Do You Have Difficulty Seeing? No Information n ot available 12/21/2022 What Is Your Level Of Caffeine Consumption? Moderate Information not available 09/07/2020 How Much Tobacco Do You Chew? None [email or web address] Information not available 12/21/2022 In The 14 Days Before Symptom Onset, Have You Had Close Contact With A Laboratory-confirm ed COVID-19 While That Case Was Ill? No Information n ot available 04/01/2024 In The 14 Days Before Symptom Onset, Have You Had Close Contact With A Person Who Is Under Investigation For COVID-19 While That Person Was Ill? No Information not available 04/01/2024 Have You Been To An Area Known To Be High Risk For COVID-19? No [email or web address] Information not available 12/21/2022 Are You Deaf Or Do You Have Serious Difficulty Hearing? No [email or web address] Information not available 12/21/2022 What Type Of Diet Are You Following? REGULAR [email or web address] Information n ot available 12/21/2022 What Is The Highest Grade Or Level Of School You Have Completed Or The Highest Degree You Have Received? 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 0 [email or web address] Information not available 12/27/2022 Are There Any Guns Present In Your Home? No [email or web address] Information not available 12/21/2022 Do You Use Protection During Sex? Always [email or web address] Information not available 12/21/2022 Do You Use Your Seat Belt Or Car Seat Routinely? Yes [email or web address] Information not available 12/21/2022 Do You Have Smoke And Carbon Monoxide Detectors In Your Home? Yes Information not available 12/21/2022 At What Age Did You Start Smoking Tobacco? 22 Information not available 09/07/2020 How Much Tobacco Do You Smoke? 0.5 PPD [email or web address] Information not available 12/21/2022 Do You Feel Stressed (tense, Restless, Nervous, Or Anxious, Or Unable To Sleep At Night)? [id number] [email or web address] Information not available 06/10/2024 Do You Use Any Illicit Or Recreational Drugs? No Information not available 09/07/2020 Do You Use Sunscreen Routinely? No [email or web address] Information not available 12/21/2022 Has Tobacco Cessation Counseling Been Provided? No [email or web address] Information not available 12/27/2022 How Many Years Have You Smoked Tobacco? 18 Information not available 09/07/2020 Have You Used IV Drugs? No Information not available 12/21/2022 Do You Or Have You Ever Used Any Other Forms Of Tobacco Or Nicotine? No [email or web address] Information not available 12/27/2022 Sex: Unknown Functional Status Question Answer Note LastModified by Organizat ion Details LastModified Time Do you have difficulty walking or climbing stairs? No [email or web address] Information not available 12/27/2022 Are you able to walk? YESWOREST [email or web address] Information not available 12/21/2022 Are you able to care for yourself? Yes [email or web address] Information not available 12/27/2022 Do you have difficulty dressing or bathing? No [email or web address] Information not available 12/27/2022 What is your exercise level? Moderate [email or web address] Information not available 12/21/2022 Mental Status None recorded. Family History Relationship Description Onset Age of this Age Resolved Age Notes LastModified by Organization Details LastModified Time Maternal Aunt Diabetes mellitus Not available 2023 10:54:37 Maternal Aunt Diabetes mellitus [email or web address] Not available 2023 15:56:25 Mother Hypercholest erolemia Not available 2023 10:54:37 Mother Disorder of thyroid gland Not available 2023 10:54:37 Mother Hypercholest erolemia [email or web address] Not available 2023 15:56:25 Mother Disorder of thyroid gland [email or web address] Not available 2023 15:56:25 Maternal Grandfather Diabetes mellitus Not available 2023 10:54:37 Maternal Grandfather Diabetes mellitus [email or web address] Not available 2023 15:56:25 Medical History Condition Response Allergies (Food, seasonal, environmental ) N Other N Drug/Latex Allergies/Reactions N Blood Transfusion N Breast Cancer N Dermatologic Disorders N Lung Disease N Defects or Inherited Disease N Breast Problem N Gestational Diabetes N Hematologic disorders N Anesthesia Complications N History of STI N Deep Vein Thrombosis N Polycystic ovary syndrome N Anxiety Disorder N Autoimmune disease N Arthritis N Polyps N Infertility N Acid Reflux (GERD) N History of abnormal pap N Cancer N Varicosities N Stroke N Neurologic/Epilepsy N Endometriosis N High Cholesterol Y Fibromyalgia N Headaches N Kidney Disease N Heart Problems N Thyroid Problems N Kidney or Bladder Problems N GI Problems N Eating Disorder N Anemia N Art (IVF or FET) N Psychiatric Illness N Ovarian Cancer N Diabetes N Pulmonary (TB, Asthma) N Hepatitis/Liver Disease N No Past Medical History N Eczema N Urinary Tract Infection N Abuse/Domestic Violence N Asthma N Trauma/Violence N Depression/ depression N Heart Disease N Pre-Eclampsia N Hypertension N Osteoporosis N Thrombophilias N Gynecological History Statement/Question Response Abnormal Pap N Date of Last Mammogram Flow Heavy Date of LMP 05/26/2024 N On BCP's at Conception? N STIs/STDs N Was last menstrual period normal N HPV Vaccine N Colposcopy Duration of Flow (days) 5 Current Control Method None Are cycles usually normal Y Date of Last Colonoscopy Frequency of Cycle (Q days) 28 Sexually Active? N Menses Monthly Y Date of DEXA bone scan Age of first menstrual cycle 15 Date of Last Pap Smear 12/21/2022 Sexual Problems? Y LMP Approximate N Obstetrics History GPAL:G 0 P 0 0 0 0 Type Value Living 0 Total 0 Past Encounters Encounter ID Performer Location Encounter Start Date Encounter Closed Date Diagnosis/Indication Diagnosis SNOMED-CT Code Diagnosis ICD10 Code Diagnosis Note [id number] Katelynn Noonan [facility] [address] [address] 09/07/2020 14:34:35 09/07/2020 16:20:38 Gynecologic examination 28648196 Z01.419 Take Calcium with Vitamin D 1200mg daily if not receiving in daily diet. It is strongly advised to have an annual flu shot and up can obtain at most pharmacies . If you have not had a TDap shot in the last 10 years you should obtain one as well. Discussed with patient & provided with informatio n regarding Gardisil vaccine to prevent the 4 strains for HPV that cause cervical cancer if under age 26. Encourage safe sexual practices, to use condoms and limit partners if not already in a monogamous relationsh ip. Do monthly self breast exams. Have mammogram yearly or every other year depending on family history. BRCA testing is now available for patients with strong genetic history of female cancer. If interested contact the office. Engage in daily exercise of low impact aerobic exercise 45-60 minutes 4-5 times weekly. Avoid tobacco and illicit drugs as well as using moderation with alcohol intake less than 1-2 8 oz beverages daily. This lifestyle behavior pattern will lead to less health conditions and longer life span. If BMI greater than 25 weight watchers or dietary consult advised. Patient received above instructio ns, and questions have been answered. If you have any questions please call or respond to this email. Patient was made aware of the patient portal and may obtain a paper copy of today's plan if desired. Mammo next year Reduced libido 5127122 R 68.82 We reviewed options for hypoactive desire disorder & decrease ability to have a strong orgasm. Medication s were each reviewed in depth. Websites given for home research. 1. Addyi 2. Vyleesi 3. Low dose T-Cream 4. Wellbutrin XL would need updated labs [place] if doing T-cream She can call with the options she has chosen. We will re-review instructio ns & side effects. Will use option of her choice x 3mos then return for f/u viist. Also consider adding the following to spice up sexual encounters : Janet Kern tasteful couples movies & read spicy literature yourself or with your partner. Have sex in different places. Take time for yourself and plan date nights. [id number] [facility] [address] [address] 12/21/2022 12:15:30 12/21/2022 12:56:36 Gynecologic examination 74265700 Z01.419 Take Calcium with Vitamin D 1200mg daily if not receiving in daily diet. It is strongly advised to have an annual flu shot and up can obtain at most pharmacies . If you have not had a TDap shot in the last 10 years you should obtain one as well. Discussed with patient & provided with informatio n regarding Gardisil vaccine to prevent the 4 strains for HPV that cause cervical cancer if under age 26. Encourage safe sexual practices, to use condoms and limit partners if not already in a monogamous relationsh ip. Do monthly self breast exams. Have mammogram yearly or every other year depending on family history. BRCA testing is now available for patients with strong genetic history of female cancer. If interested contact the office. Engage in daily exercise of low impact aerobic exercise 45-60 minutes 4-5 times weekly. Avoid tobacco and illicit drugs as well as using moderation with alcohol intake less than 1-2 8 oz beverages daily. This lifestyle behavior pattern will lead to less health conditions and longer life span. If BMI greater than 25 weight watchers or dietary consult advised. Patient received above instructio ns, and questions have been answered. If you have any questions please call or respond to this email. Patient was made aware of the patient portal and may obtain a paper copy of today's plan if desired. Pap/hpv due Screen declinedGe netic Screen discussedC olon Screen naDexa Screen naRoutine Labs PCPMammo ordered Screening mammography 24 617200 Z12.31 Pain in pelvis 57572264 R10.2 Update US for left sided pelvic pain replicated on exam & subjective complaints .Will reach out with results. Patient is to contact office or go to nearest ED/Urgent care if fever >/= 100.1, pain, excessive bleeding, unusual drainage or swelling in area of concern; or experienci ng worsening sx's or new onset of concerning sx's. Understand ing verbalized . All questions answered to patient satisfacti on. [id number] Tiffanie Osullivan [place] [address] [address] 12/27/2022 09:31:30 12/27/2022 10:10:25 Pain in pelvis 53517393 R10.2 N92.6 [id number] Isha Quiros MD [place] [address] [place] [address] 04/02/2023 17:05:17 04/03/2023 15:50:15 Cyst of left ovary [id number] 7743093 N83.202 Cigarette smoker 9404105 7 F17.210 Left lower quadrant pain 425289553 R10.32 [id number] Tiffanie Osullivan [place] [address] [address] 05/04/2023 15:57:17 05/07/2023 15:21:34 Pain in pelvis 91920909 R10.2 N83.209 [id number] Lo MARCY Vega [place] [address] [address] 04/01/2024 15:05:24 04/01/2024 18:17:59 Gynecologic examination 14181641 Z01.419 Z11.51 WWEpap updatedde lined STI screen (recently had full panel done at PCP office)jose mogram order given Do monthly self breast exams.It is advised to get annual flu shot in the fall and she could obtain at local pharmacy. If you haven't received the Tdap vaccine in the last 10 years you should obtain one as well.Have mammogram yearly, bone density every 2-3 years and stay up to date on colon cancer screening. Engage in regular exercise. Avoid tobacco and illicit drugs. This lifestyle behavior pattern will lead to less health conditions and longer life span. If BMI greater than 25 dietary consult advised.Qu estions have been answered. Pain in pelvis 64213292 R10.2 pelvic u/s orderedpre cautions discussed Screening for malignant neoplasm of breast 013876302 Z12.39 [id number] CHRISTI LI MD [place] [address] [address] 06/10/2024 15:56:13 06/10/2024 16:42:36 Screening for malignant neoplasm of cervix 971920264 Z12.4 - repeat pap obtained today- follow up with results as available Health Concerns Section Related Observation LastModified by Organization Detai ls LastModified Time None Recorded Concern Status LastModified by Organization Details LastModified Time None Recorded Advance Directives Directive None Recorded Payers Encounter Date Sequence Insurance Name Policy Number Policy Aquino Covered Member ID Aquino Member ID Guarantor Name 12/27/2022 1 [place] [id number] Myrna Zimmerman [id number] Marivel Zimmerman 04/02/2023 1 [place] [id number] Myrna Zimmerman [id number] 33 Marivel Zimmerman 05/04/2023 1 [place]) [id number] A Marivel Zimmerman [id number] 32 Marivel Zimmerman 04/01/2024 1 [place] [id number] A Marivel Zimmerman [id number] 33 Marivel Zimmerman 06/10/2024 1 [place] [id number] A Marivel Zimmerman [id number] 33 Marivel Zimmerman Notes Date Note Type Note Provider Name and Address Organization Details Recorded Time 04/02/2023 text/html Marivel is a 42y o G0 here for follow up from ED for pelvic pain. She had a 3.4cm simple left ovarian cyst in December, that pain resolved and was milder than this recent pain. ED on 03/28 for terrible left sided pain. CT showed 5cm complex left adnexal mass, but US showed 2.5cm hemorrhagic cyst. Since then, pain has improved and is just intermittent pressure, especially when her bladder is full. SHe is a smoker. she was treated for presumptive PID in ED with doxy and flagyl. Isha Quiros MD [address], [place], [address], [facility] 04/02/2023 22:11:43 04/01/2024 text/html Annual GYNReport ed bypatient.Menstrual cycle:Normal menses Urinary symptoms:No hematuria; No incontinence Vulva:No genital lesion Vagina:Normal vaginal discharge Breast:No breast pain; No breast lump; No nipple discharge Sexual complaints:No sexual complaints; No pain during intercourse; Normal libido Menopausal Symptoms:No menopausal symptoms; Normal vaginal lubrication Psychological symptoms:No depression; No anxiety; No PMDD Preventive measures:Encourage self breast examination; Encourage regular exercise; Encourage no tobacco use; Encourage regular mammograms starting age 41Notes:43yo WWElast pap 2020 - nilm, HPV (-) right sided pelvic pain x 2-3 months, comes and goes, cramping/ache neg d/c, odors, itching, irritationneg n/v/fneg urinary symptomsnormal bowel movements MARCY Perez [address], [place], [address], [facility] 04/01/2024 17:11:48 06/10/2024 text/html Patient presents for repeat pap smear. Obscuring blood on last pap. CHRISTI LI MD [address], [place], [address], [facility] 06/10/2024 16:39:59 OBGyn Episode No OBEpisode recorded.
--- OUTSIDE RECORDS SUMMARY | 2024-10-22 00:20 | XMS_ITS | Patient Health Summary ---
Author Organization [facility] Address [address] [place] [address] Care Team Providers Care Transfer Knitter Name Role Phone Osmar Wang MD Primary Care Provider [phone] Note from [facility],non-owned Affiliates and Associated Physician Practices is amultiple site organization consisting of ambulatory clinics and hospital sitesin [place], [place], [place] and [place]. This disclosure is being madepursuant to the Care Everywhere program and may not contain all information available regarding this patient. Last updated 18.[facility] Allergies No known active allergies Medications * [...] Comments Blood Pressure 120/76 10/29/2015 6:04 PM ROUGE MIXER Pulse 95 10/29/2015 6:04 PM ROUGE MIXER Temperature 36.7 C (98 F) 10/29/2015 3:00 PM ROUGE MIXER Respiratory Rate 16 10/29/2015 6:04 PM ROUGE MIXER Oxygen Saturation 98% 10/29/2015 6:04 PM ROUGE MIXER Inhaled Oxygen Concentration - - Weight 82.1 kg (181 lb) 10/29/2015 3:00 PM ROUGE MIXER Height 175.3 cm (5' 9.02 ) 10/29/2015 3:00 PM CS T Body Mass Index 26.72 10/29/2015 3:00 PM ROUGE MIXER Procedures * CULTURE WOUND+GRAM STAIN(Performed 10/29/2015) * ED INCISION AND DRAINAGE(Performed 10/29/2015) Performed for Pilonidal cyst with abscess Results * (ABNORMAL) CULTURE WOUND+GRAM STAIN (10/29/2015 6:06 PM ROUGE MIXER) Culture Growth from broth only Prevotella buccae(A) MARYAM 11/06/2015 2:30 PM CDT [facility] Culture Growth of normal skin satya MARYAM 11/06/2015 2:30 PM CDT [facility] Gram Stain Many White blood cells 11/06/2015 2:30 PM CDT [facility] Gram Stain Many Gram positive cocci 11/06/2015 2:30 PM CDT [facility] Gram Stain Many Gram negative bacilli 11/06/2015 2:30 PM CDT [facility] Gram Stain Many Gram positive bacilli 11/06/2015 2:30 PM T [facility] Microbiology ENTIRE COCCYX / Unknown 10/29/2015 6:06 PM ROUGE MIXER 10/29/2015 6:22 PM ROUGE MIXER Khloe [facility] - MICRO BIOLOGY ORDERABLES Performing Organization Address City/State/[facility] Co de Phone Number [facility] [address] * ED INCISION AND DRAINAGE (10/29/2015 6:03 PM ROUGE MIXER) Narrative Khloe Hoffmann APRN-CNP - 10/29/2015 6:03 PM ROUGE MIXER Khloe Hoffmann APRN-CNP 10/29/2015 6:03 PM Provider contact with the patient: 10/29/2015 17:04 Marivel Zimmerman [id number] [facility] History Chief Complaint Patient [...] diagnoses: Pilonidal cyst with abscess Khloe Hoffmann HOG SLAUGHTERER-JOB SERVICE CONSULTANT PROCEDURE/M INOR SURGICAL ORDERABLES Care Teams Transfer Knitter Relationship Specialty Start Date End Date Osmar Wang MD [address] [place] [address] PCP - General Family Medicine 10/29/15
--- OUTSIDE RECORDS SUMMARY | 2024-10-22 00:20 | XMS_ITS | Clinical Summary ---
Author Organization [facility] Address [address] [place] [address] Care Team Providers Care Power Plant Installer Name Role Phone Osmar Wang MD Primary Care Provider [phone] Source Comments [facility],non-owned Affiliates and Associated Physician Practices is amultiple site organization consisting of ambulatory clinics and hospital sitesin [place], [place], [place] and [place]. This disclosure is being madepursuant to the Care Everywhere program and may not contain all information available regarding this patient. Last updated 18.[facility] Allergies No known active allergies Medications * [...] Blood Pressure 120/76 10/29/2015 6:04 PM MACHINE WORKER Pulse 95 10/29/2015 6:04 PM MACHINE WORKER Temperature 36.7 C (98 F) 10/29/2015 3:00 PM MACHINE WORKER Respiratory Rate 16 10/29/2015 6:04 PM MACHINE WORKER Oxygen Saturation 98% 10/29/2015 6:04 PM MACHINE WORKER Inhaled Oxygen Concentration - - Weight 82.1 kg (181 lb) 10/29/2015 3:00 PM MACHINE WORKER Height 175.3 cm (5' 9.02 ) 10/29/2015 3:00 PM CS T Body Mass Index 26.72 10/29/2015 3:00 PM MACHINE WORKER Plan of Treatment Health Maintenance Due Date [...] age to complete this topic Care Teams Power Plant Installer Relationship Specialty Start Date End Date Osmar Wang MD [facility] [place] [address] PCP - General Family Medicine 10/29/15
--- OUTSIDE RECORDS SUMMARY | 2024-10-22 00:20 | XMS_ITS | Clinical Summary ---
Author Organization [facility] Address [address] [place] [id number] Care Team Providers Care Advertising Operations Manager Name Role Phone Unavailable Primary Care Provider [...]
[2024-10-22] MEDS: ACETAMINOPHEN 500 MG TABLET 1000 MG PO (07:19)
[2024-10-22 07:20] LABS: BEDSIDEPREGUCG Negative (Negative)
[2024-10-22] MEDS: LACTATED RINGERS 1,000 ML 30 ML IV CONT ×2 (07:20→10:08)
--- NOTE | 2024-10-22 07:27 | WPDHPUPDATE1 ---
History and Physical Update Update Date/Time: 10/22/24 07:27 - Excisional biopsy of right breast mass with magseed localization, possible adjacent tissue transfer. History and Physical has been reviewed, including an updated exam of the patient. There are NO changes in the patient's condition. Risks, benefits, and alternatives have been discussed and questions answered. Patient agrees to proceed with procedure.
--- NOTE | 2024-10-22 08:19 | P.PNAN_ITS ---
Anes - Initial Pre Proc Eval Procedure: Operation Date: 10/22/24 08:30 Proposed Procedures p Excisional Biopsy of Right Breast Mass with Mag Seed Localization, Possible Adjacent Tissue Transfer - Radha Villegas MD Date/Time: 10/22/24 08:19 Surgeon: Radha Villegas MD Pre Op Diagnosis: unspecified lump right breast Patient Data Age: 44 Gender: F Height: 1.75 m Weight: 91.7 kg Last Vital Signs Temp 36.8 C 10/22/24 07:11 Pulse 69 10/22/24 07:11 BP 108/54 L 10/22/24 07:11 Pulse Ox 98 10/22/24 07:11 O2 Del Method Room Air 10/22/24 07:11 Allergies Allergy/AdvReac Type Severity Reaction Status Date / Time No Known Allergies Allergy Mild Verified 10/22/24 07:10 Home Medications ?Medication ?Instructions ?Recorded ?Confirmed ?Type fenofibrate 54 mg tablet 54 mg PO DAILY #90 tabs 09/23/24 10/13/24 Rx Laboratory Tests 10/22/24 07:11 POC Urine HCG, Qual Negative (Negative) Results Review: All pre-operative results and documents have been reviewed as part of the pre- operative evaluation. [facility] Past Medical History Medical History (Updated 10/22/24 @ 08:20 by Ariel Bhatia MD) Obesity Hypertriglyceridemia Surgical History Surgical History History of excision of pilonidal cyst 04/04/24 Extensive pilonidal cystectomy with excision of sinus tract Family History Family History Mother Yovany's disease Grandparent Diabetes mellitus Social History Social History Smoking packs per day: 1 Smoking cigarettes per day: 20.0 Smoking status: Former smoker Tobacco type: cigarettes Alcohol intake: current Alcohol use details: occasional Substance use: former Substance use type: does not use, former substance user, IV drugs and methamphetamine Last use: 9 MONTHS AGO Do You Feel Safe in your Home?: Yes Lack of Transportation: No Lack of Food: Never True Current Housing: I Have Housing Concerned About Future Housing: No Difficulty Paying Gas/Electric Bills: No Difficulty Paying for Meds: No Education: Associate Degree Difficulty w/ Childcare or Family Care: No Living arrangements: with family Occupation/Education: occupation Gender identity (if verbalized by the patient): Female Spiritual care concerns: No Anes - Eval Final PreProcedure Day of Procedure 10/22/24 08:19 Patient weight: obese Heart: regular rate and rhythm Lungs: clear to auscultation Airway: Mallampati scale class II Neurological: alert and oriented Results Review: All pre-operative results and documents have been reviewed as part of the pre- operative evaluation. Informed Consent: The patient's anesthetic plan and its attendant risks and benefits were discussed with the patient/family/POA. Questions were solicited and answers provided to the satisfaction of the patient/family/POA.
--- NOTE | 2024-10-22 08:24 | P.PNAN_ITS ---
Anes - Initial Pre Proc Eval Procedure: Operation Date: 10/22/24 08:30 Proposed Procedures p Excisional Biopsy of Right Breast Mass with Mag Seed Localization, Possible Adjacent Tissue Transfer - Radha Villegas MD Date/Time: 10/22/24 08:24 Surgeon: Radha Villegas MD Pre Op Diagnosis: unspecified lump right breast Patient Data Age: 44 Gender: F Height: 1.75 m Weight: 91.7 kg Last Vital Signs Temp 36.8 C 10/22/24 07:11 Pulse 69 10/22/24 07:11 BP 108/54 L 10/22/24 07:11 Pulse Ox 98 10/22/24 07:11 O2 Del Method Room Air 10/22/24 07:11 Allergies Allergy/AdvReac Type Severity Reaction Status Date / Time No Known Allergies Allergy Mild Verified 10/22/24 07:10 Home Medications ?Medication ?Instructions ?Recorded ?Confirmed ?Type fenofibrate 54 mg tablet 54 mg PO DAILY #90 tabs 09/23/24 10/13/24 Rx Laboratory Tests 10/22/24 07:11 POC Urine HCG, Qual Negative (Negative) Patient hx anesthesia problems: none Family hx anesthesia problems: none Results Review: All pre-operative results and documents have been reviewed as part of the pre-operative evaluation. [facility] Past Medical History Medical History Obesity Hypertriglyceridemia Surgical History Surgical History History of excision of pilonidal cyst 04/04/24 Extensive pilonidal cystectomy with excision of sinus tract Family History Family History Mother Yovany's disease Grandparent Diabetes mellitus Social History Social History Smoking packs per day: 1 Smoking cigarettes per day: 20.0 Smoking status: Former smoker Tobacco type: cigarettes Alcohol intake: current Alcohol use details: occasional Substance use: former Substance use type: does not use, former substance user, IV drugs and methamphetamine Last use: 9 MONTHS AGO Do You Feel Safe in your Home?: Yes Lack of Transportation: No Lack of Food: Never True Current Housing: I Have Housing Concerned About Future Housing: No Difficulty Paying Gas/Electric Bills: No Difficulty Paying for Meds: No Education: Associate Degree Difficulty w/ Childcare or Family Care: No Living arrangements: with family Occupation/Education: occupation Gender identity (if verbalized by the patient): Female Spiritual care concerns: No Anes - Eval Final PreProcedure Day of Procedure 10/22/24 08:24 Patient weight: obese Heart: regular rate and rhythm Lungs: clear to auscultation Airway: Mallampati scale class II Neurological: alert and oriented Last oral intake: >/= 8 hours ASA classification: III Emergent: no Anesthetic plan: proceed Anesthesia type and monitoring: general LMA and standard monitoring Results Review: All pre-operative results and documents have been reviewed as part of the pre- operative evaluation. Informed Consent: The patient's anesthetic plan and its attendant risks and benefits were discussed with the patient/family/POA. Questions were solicited and answers provided to the satisfaction of the patient/family/POA.
--- NOTE | 2024-10-22 08:52 | PM.IMHP ---
H&P: HPI History of Present Illness Date/Time: 10/22/24 08:52 Chief Complaint: 44-year-old female who presents for evaluation of right breast mass, status post core needle biopsy with discordant results between pathology report and image findings. I reviewed the mammogram and ultrasound as well as pathology report and agree that the pathology report results does not explain the appearance of the mass on ultrasound. I discussed with the patient recommendation for an excisional biopsy for definitive diagnosis. Patient also has extremely dense breast tissue on mammography and would benefit from a breast MRI in the future which should be covered by her insurance. For now, we will proceed with Mag seed localization of this right breast mass at 12 o'clock position 2 cm from the nipple followed by excisional biopsy hopefully in the near future. Review of Systems Review of Systems: All systems reviewed & are unremarkable except as noted in HPI and below PMFSH Past Medical History Medical History Obesity Hypertriglyceridemia Surgical History Surgical History History of excision of pilonidal cyst 04/04/24 Extensive pilonidal cystectomy with excision of sinus tract Family History Family History Mother Yovany's disease Grandparent Diabetes mellitus Social History Social History Smoking packs per day: 1 Smoking cigarettes per day: 20.0 Smoking status: Former smoker Tobacco type: cigarettes Alcohol intake: current Alcohol use details: occasional Substance use: former Substance use type: does not use, former substance user, IV drugs and methamphetamine Last use: 9 MONTHS AGO Do You Feel Safe in your Home?: Yes Lack of Transportation: No Lack of Food: Never True Current Housing: I Have Housing Concerned About Future Housing: No Difficulty Paying Gas/Electric Bills: No Difficulty Paying for Meds: No Education: Associate Degree Difficulty w/ Childcare or Family Care: No Living arrangements: with family Occupation/Education: occupation Gender identity (if verbalized by the patient): Female Spiritual care concerns: No Meds Home Medications and Allergies Home Medications ?Medication ?Instructions ?Recorded ?Confirmed ?Type fenofibrate 54 mg tablet 54 mg PO DAILY #90 tabs 09/23/24 10/13/24 Rx hydrocodone 5 mg-acetaminophen 325 1 tablet PO Q6H PRN pain #12 tabs 10/22/24 Rx mg tablet Allergies Allergy/AdvReac Type Severity Reaction Status Date / Time No Known Allergies Allergy Mild Verified 10/22/24 07:10 Vital Signs Vital Signs - 24 hr 10/22/24 07:11 Temperature 36.8 C Pulse Rate 69 Blood Pressure 108/54 L Pulse Oximetry 98 Oxygen Delivery Room Air Exam Const: General: comfortable and no acute distress Eyes: General: appearance normal, both eyes and all related structures Neck: Neck: supple Resp: Effort & Inspection: normal respiratory effort Cardio: Rate: regular rate Skin: General skin exam: normal color Extrem: General: normal to inspection Psych: Mental Status: mental status grossly normal Assessment and Plan Assessment and plan (1) Breast lump on right side at 6 o'clock position: Code(s): N63.15 - Unspecified lump in the right breast, overlapping quadrants Status: Acute (2) Breast mass, right: Code(s): N63.10 - Unspecified lump in the right breast, unspecified quadrant Status: Acute (3) Breast lump on right side at 12 o'clock position: Code(s): N63.15 - Unspecified lump in the right breast, overlapping quadrants Status: Acute Plan 44-year-old female status post core needle biopsy with discordant results between pathology report and image findings, who presents for excisional biopsy of right breast mass with mag seed localization, and possible adjacent tissue transfer. Risks of procedure were discussed with patient, which included but were not limited to risk of bleeding, infection, wound healing problems, possible need for additional procedures in the future, scar, pain, asymmetry, recurrence, as well as the risk of anesthesia. All questions were answered and patient has agreed to proceed. - OR for the planned procedure.
[2024-10-22] MEDS: ceFAZolin 2 GM/D5W 50 ML 2 GM/50 ML BAG IVPB (08:56)
--- NOTE | 2024-10-22 09:41 | SUR.OPER ---
Specimens x 2 sent with Migdalia Mujica and received in pathology by Carey
--- NOTE | 2024-10-22 09:55 | W.PM.PROC2 ---
Procedure Note - Detailed Date of Procedure 10/22/24 Pre-op Diagnosis Right breast mass, discordant pathology and radiology findings Post-op Diagnosis Same Procedure Performed Excisional biopsy of right breast mass with Mag seed localization and adjacent tissue transfer (4cm x 3cm) Surgeon Radha Villegas MD In Process Inspector Edwina Franz PA-C Anesthesia General Description of Procedure Patient was identified in the pre-operative area and brought to the OR suite. She underwent tumor localization previously by IR with magseed placement. She was laid supine in the operating table and sequential compression devices were applied. General anesthesia was induced without difficulties. The right chest was prepped and draped in a sterile fashion. The sentimag probe was used to identify the area where the magseed was placed and a superior periareolar incision was made. Dissection was carried down through the subcutaneous tissue into the breast tissue. The mass was identified with palpation and using sentimag probe, and a rim of normal breast tissue was excised along with the tumor as our specimen. Once the specimen was completely excised, it was oriented using surgical paint according to logistics operations director instructions. The specimen was placed in the faxitron and 2 radiographs were obtained and sent to Radiology for radiographic confirmation of Tumor, biopsy marker and magseed within the specimen. An additional lateral margin was obtained due to the close proximity of the biopsy clip to the lateral margin on the initial specimen on Faxitron images. Once the radiographic confirmation was received, the wound was irrigated with saline and hemostasis was assured. Patient has extremely dense breast tissue, and since this mass was relatively superficial, I proceed to immobilize the lateral breast tissue so that I could close the cavity and decrease the risk of future seroma. I dissected the breast tissue laterally for approximately 3 cm x 4 cm and this easily allowed the biopsy cavity to be closed to the medial breast tissue. Several 2-0 Vicryl intraparenchymal sutures were placed to approximate and close the biopsy cavity. The deep dermal layer was approximated using interrupted 3-0 vicryl followed by 4-0 monocryl for the skin. Dermabond was applied followed by a surgical bra. Patient was awoken from anesthesia and taken to the recovery area in stable condition. All needles, instruments and sponge counts were correct as reported by the operating room staff. Patient tolerated the procedure well with no immediate complications. Edwina Franz PA-C was required for positioning and retraction throughout the entire case. Estimated Blood Loss 10 Drains No Pathology Yes Complications No immediate complications Condition Stable Disposition PACU [facility] Billing Surgery - Charge Forward: Surgery Billing ([id number], [id number] [phone] [id number])
--- NOTE | 2024-10-22 10:30 | SUR.PHASEI ---
1029: Simple mask removed.
[2024-10-22] MEDS: oxyCODONE HCL (*CRX) 5 MG TAB IR PO (11:00)
== END 2024-10-22 11:39 | disposition home or self-care (01) ==
PROVIDERS: PCP Family Medicine; Visit Provider Surgery
PROC: (CPT 19120; principal; 2024-10-22 08:30)
DX: D24.1 Benign neoplasm of right breast (principal); N60.21 Fibroadenosis of right breast; N60.11 Diffuse cystic mastopathy of right breast; E78.1 Pure hyperglyceridemia; E66.9 Obesity, unspecified; Z68.29 Body mass index [BMI] 29.0-29.9, adult; Z79.891 Long term (current) use of opiate analgesic; Z98.890 Other specified postprocedural states; Z87.891 Personal history of nicotine dependence
CPT/HCPCS: 19120; 14001; 76098; 88307; A9270; J0690; J1100; J2003; J2250; J2405; J2704; J3010; J7120; Q9968

== ENCOUNTER 2025-02-10 09:24 | Outpatient (CLI) | payer BC, SELFPAY ==
--- NOTE | ~2025-02-10 | US_ITS ---
EXAMINATION TYPE: US breast RT limited COMPARISON: 08/08/2024 REASON FOR STUDY: N63.0 - Unspecified lump in unspecified breast TECHNIQUE: Targeted sonographic evaluation of the right breast was performed. INTERPRETATION: 7 x 6 x 4 mm circumscribed hypoechoic parallel mass at the right breast 6:00 position is present, 3 c m to the nipple, unchanged. IMPRESSION: Stable 7 mm benign-appearing mass at the 6:00 position right breast, as detailed above. BI-RADS CATEGORY: BI-RADS 2: Benign Reviewed, dictated and finalized at location M. IMPRESSION: Stable 7 mm benign-appearing mass at the 6:00 position right breast, as detaile d above. BI-RADS CATEGORY: BI-RADS 2: Benign
== END 2025-02-10 09:25 | disposition home or self-care (01) ==
PROVIDERS: PCP Family Medicine; Visit Provider Student in an Organized Health Care Education/Training Program
DX: N63.15 Unspecified lump in the right breast, overlapping quadrants (principal); N64.89 Other specified disorders of breast
CPT/HCPCS: 76642

== ENCOUNTER 2025-02-11 11:45 | Outpatient (CLI) | payer BC, SELFPAY ==
--- NOTE | ~2025-02-11 | US_ITS ---
EXAMINATION: US thyroid DATE: 02/11/2025 12:02 INDICATION: Nontoxic multinodular goiter TECHNIQUE: Multiple ultrasound images of the thyroid were obtained. COMPARISON: 03/20/2024 FINDINGS: The right thyroid lobe measures 6.5 x 2.2 x 2.3 cm. The left thyroid lobe measures 6.1 x 2.0 x 2.1 c m. There are a few wider than tall solid hypoechoic nodules with smooth to ill-defined margins and w ithout echogenic foci ( (TI-RADS 4, moderately suspicious , FNA if >=1.5 cm, annual followup is >=1 c m) measuring 1.8 cm in the mid left thyroid, 1.2 cm in the inferior left thyroid and 1.5 cm in the inferior right thyroid lobe. These all appear unchanged when compared with the prior study. There is an 8 mm mixed solid and cystic hypoechoic nodule which is wider than tall with ill-defined margins an d without echogenic foci (TI-RADS 3, mildly suspicious , FNA if >=2.5 cm, annual followup is >=1.5 cm ) in the superior right thyroid lobe. IMPRESSION: 1. Stable appearance of a multinodular goiter with no change in a 1.8 cm TI RADS 4 left thyroid nodul e and 1.5 cm TI RADS 4 right thyroid nodule, both of which meet criteria for ultrasound-guided fine-n eedle aspiration which would be recommended. Reviewed, dictated and finalized at location A. IMPRESSION: 1. Stable appearance of a multinodular goiter with no change in a 1.8 cm TI RAD S 4 left thyroid nodule and 1.5 cm TI RADS 4 right thyroid nodule, both of whic h meet criteria for ultrasound-guided fine-needle aspiration which would be rec ommended.
== END 2025-02-11 11:46 | disposition home or self-care (01) ==
LOC: MICIMG 11:47
PROVIDERS: PCP Family Medicine; Visit Provider Student in an Organized Health Care Education/Training Program
DX: E04.2 Nontoxic multinodular goiter (principal)
CPT/HCPCS: 76536

== ENCOUNTER 2025-04-07 08:59 | Outpatient (CLI) | payer BC, SELFPAY ==
--- NOTE | ~2025-04-07 | XR_ITS ---
EXAM/ PROCEDURE: XR foot LT min 3V - 04/07/2025 9:03 CDT HISTORY: 44 years old Female with M79.672 - Pain in left foot COMPARISON: None available TECHNIQUE: Three view(s) FINDINGS/ IMPRESSION: There are no fractures or dislocations.Joint spaces are within normal limits. Calcaneal enthesopathy and Achilles tendon enthesopathy. Reviewed, dictated and finalized at location A.
== END 2025-04-07 09:00 | disposition home or self-care (01) ==
LOC: MICIMG 09:00
PROVIDERS: PCP Family Medicine; Visit Provider Student in an Organized Health Care Education/Training Program
DX: M77.32 Calcaneal spur, left foot (principal); M76.62 Achilles tendinitis, left leg
CPT/HCPCS: 73630

== ENCOUNTER 2025-04-22 10:03 | Outpatient (CLI) | payer BC, SELFPAY ==
--- NOTE | ~2025-04-22 | US_ITS ---
EXAMINATION: US FNA w image guidance, US FNA additional DATE: 04/22/2025 11:14 INDICATION: Nontoxic multinodular goiter TECHNIQUE: A time-out was performed to verify the patient's name, date of , and procedure to be performed. The procedure and its benefits and risks were discussed with the patient. Risks specifically discussed included bleeding and infection. The patient understood the risks and agreed to proceed. The neck was prepped and draped in the usual sterile manner. Attention was first turned to the right thyroid nodule. 3 mL 1% lidocaine was used for local anesthesia. 5 passes were made with a 25G needle into the lesion. Appropriate needle location was documented with continuous sonographic guidance. Attention was then turned to the left thyroid nodule. An additional 2 mm 1% lidocaine was used for local anesthesia. 5 passes were made with a 25G needle into the lesion. Appropriate needle location was documented with continuous sonographic guidance. Sterile bandages were applied. There were no immediate complications. FINDINGS: Grayscale ultrasound images demonstrate biopsy needles advanced into first the 1.5 cm TI RADS 4 right thyroid nodule. Subsequent images demonstrate the biopsy needle advanced into the 1.8 cm left thyroid nodule of concern. On real-time imaging there appear to be microcalcifications within the left-sided nodule which would increase the gradient to TI RADS 5. IMPRESSION: 1. Successful ultrasound-guided fine needle aspiration of a 1.5 cm TI RADS 4 right thyroid nodule. 2. Successful ultrasound-guided fine-needle aspiration of a 1.8 cm TI RADS 5 left thyroid nodule. Reviewed, dictated and finalized at location A. IMPRESSION: 1. Successful ultrasound-guided fine needle aspiration of a 1.5 cm TI RADS 4 r ight thyroid nodule. 2. Successful ultrasound-guided fine-needle aspiration of a 1.8 cm TI RADS 5 le ft thyroid nodule.
--- NOTE | 2025-04-22 10:42 | CY_PTH ---
PATIENT: Marivel Zimmerman LOC: [facility] U#:[id number] AGE/SX: 44/F ROOM: RE04/22/[address]: Lyric ValeroMD : 1980 BED: DIS: 04/22/2025 SPEC #: [id number] RECD: 04/22/25 11:15 STATUS: MIRIAN DUMAS #: [id number] REMINGTON: 04/22/25 10:[address]: AnjumLyric Cevallos DEPT: [facility] Cytology RECD BY: Carey Olivas Tissues: A - FNA Thyroid B - FNA Thyroid Procedures: Hematoxylin and Eosin Stain Cell Block Fine Needle Aspiration Evaluation Fna Additional Pass Fine Needle Aspiration Pathologist
--- OUTSIDE RECORDS SUMMARY | 2025-04-22 11:14 | XMS_ITS | Clinical Summary ---
Author Organization [facility] Address [address] [place] [address] Care Team Providers Care Digital Marketing Apprentice Name Role Phone Osmar Wang MD Primary Care Provider [phone] Source Comments [facility],non-owned Affiliates and Associated Physician Practices is amultiple site organization consisting of ambulatory clinics and hospital sitesin [place], [place], [place] and [place]. This disclosure is being madepursuant to the Care Everywhere program and may not contain all information available regarding this patient. Last updated 18.[facility] Allergies No known active allergies Medications * Be aware that medications may not be up to date on this document. Alwaysverify current medications with the patient. 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 Gender Identity Not on file Sexual Orientation Not on file Last Filed Vital Signs Vital Sign Reading Time Taken Comments Blood Pressure 120/76 10/29/2015 6:04 PM MOTOR ROOM CONTROLLER Pulse 95 10/29/2015 6:04 PM MOTOR ROOM CONTROLLER Temperature 36.7 C (98 F) 10/29/2015 3:00 PM MOTOR ROOM CONTROLLER Respiratory Rate 16 10/29/2015 6:04 PM MOTOR ROOM CONTROLLER Oxygen Saturation 98% 10/29/2015 6:04 PM MOTOR ROOM CONTROLLER Inhaled Oxygen Concentration - - Weight 82.1 kg (181 lb) 10/29/2015 3:00 PM MOTOR ROOM CONTROLLER Height 175.3 cm (5' 9.02) 10/29/2015 3:00 PM CS T Body Mass Index 26.72 10/29/2015 3:00 PM MOTOR ROOM CONTROLLER Plan of Treatment Health Maintenance Due Date Last Done Comments LIPID TESTING 1980 MAMMOGRAM 1980 HIV SCREENING 1996 HEPATITIS C SCREENING 07/19/1999 DTAP/TDAP/TD VACCINES (1 - Tdap) 2000 HEPATITIS B VACCINE (1 of 3 - 19+ 3-dose series) 2000 PNEUMOCOCCAL VACCINE (1 of 2 - PCV) 2000 PAP SMEAR 2002 HPV VACCINE (1 - 3-dose SCDM series) 2008 COVID-19 VACCINE (1 - 2023-2 5 season) 2024 DEPRESSION SCREENING 08/20/2024 INFLUENZA VACCINE (#1) 2025 ZOSTER VACCINE (1 of 2) 2031 HIB VACCINE Aged Out No longer eligi ble based on patient's age to complete this topic MENINGOCOCCAL (Group B) VACC INE SHARED DECISION-MAKING Aged Out No longer eligibl e based on patient's age to complete this topic MENINGOCOCCAL GROUPS A/C/Y/W VACCINE Aged Out No longer eligible b ased on patient's age to complete this topic Insurance MEDICAID - [place] SELF PAY NO INSURANCE Member Subscriber Plan / Payer (Ef fective for All Dates) Name:Marivel Mcclendon Member ID:Not on file Relation to Subscriber:Not on file Name:MARIVEL MCCLENDON Subscriber ID:Not on file (Home) Address: [address] [place] [address] Payer ID:Not on file Group ID:Not on file Type:Self Pay Address: [facility] Care Teams Digital Marketing Apprentice Relationship Specialty Start Date End Date Osmar Wang MD [address] [place] [address] PCP - General Family Medicine 10/29/15
--- OUTSIDE RECORDS SUMMARY | 2025-04-22 11:14 | XMS_ITS | Clinical Summary ---
Author Organization [facility] Address [address] [place] [id number] Care Team Providers Care Business Office Specialist Name Role Phone Unavailable Primary Care Provider [...] of 3 - 19+ 3-dose series) 2000 HPV Vaccines (1 - 3-dose SCD M series) 2008 Cervical Cancer Screening Pa p with HPV Testing (Age 30 to 64) Every 5 Years 2011 Cervical Cancer Screening with HPV 2011 Mammogram Screening 2021 COVID-19 Vaccine ( - 2023-2 5 season) 2025 Meningococcal B Vaccine Aged Out No l onger eligible based on patient's age to complete this topic Meningococcal Vaccine Aged Out No nba kadeem eligible based on patient's age to complete this topic Pneumococcal Vaccine: Pediat rics (0 to 5 Years) and At-Risk Patients (6 to 49 Years) Aged Out No longer eligible b ased on patient's age to complete this topic RSV Immunizations Under 20 Months Aged Out No longer eligible based on patient's age to complete this topic
== END 2025-04-22 10:04 | disposition home or self-care (01) ==
PROVIDERS: PCP Family Medicine; Visit Provider Family Medicine
DX: E04.2 Nontoxic multinodular goiter (principal)
CPT/HCPCS: 10005; 10006; 88172; 88173; 88177; 88305